=== PATIENT | male | born 1960 | race Caucasian/White ===

== ENCOUNTER 2017-04-19 14:33 | Emergency (ER) | payer OTHER ==
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
[2017-04-19 15:51] VITALS: BP 133/87
--- NOTE | 2017-04-20 08:02 | CR ---
Chest: Portable view of the chest was obtained. Comparison: No previous study. Poor inspiratory effort is seen causing increased lung markings. Atelectasis believed to be present within the right lung base. Lungs otherwise are clear. Tortuous thoracic aorta is seen. Heart does not appear enlarged. Mild scoliosis is noted within the spine. Inferior degenerative spurring is noted within both acromioclavicular joints. Impression: 1. Poor inspiratory effort causing increased lung markings. 2. Mild right basilar atelectasis believed to be present. 3. Other incidental findings. Diagnostic code #2
== END 2017-04-19 15:55 | disposition home or self-care (01) ==
LOC: JD.ED 14:33
DX: J70.5 Respiratory conditions due to smoke inhalation (principal)
CPT/HCPCS: 71010; 71010-26; 99282; 99284

== ENCOUNTER 2017-05-13 18:18 | Emergency (ER) | payer OTHER ==
[2017-05-13 18:27] VITALS: BP 133/102
[2017-05-13] MEDS ORDERED: cefTRIAXone 1 GM, Lidocaine 1% 2.1 ML IM SCH ×2 (20:30)
--- NOTE | 2017-05-13 20:36 | EDM.PDOC ---
ED HPI GENERAL MEDICAL PROBLEM - General Chief Complaint: General Stated Complaint: POSS HERNIA GROIN AREA Time Seen by Provider: 05/13/17 19:09 Source of Information: Reports: Patient History Limitations: Reports: No Limitations - History of Present Illness INITIAL COMMENTS - FREE TEXT/NARRATIVE: This is a 56-year-old male he noted yesterday evening some soreness in the right groin and then a lump developed and he believes he has a hernia. He denies lifting anything particularly heavy yesterday or the day before. He denies any fever or chills he denies any scrotal or penis pain. But he is concerned about the bump because it doesn't go away when he lies down and it seems to be more prominent when he is standing or sitting. It is also somewhat tender. Right Groin Pain Score (Numeric/FACES): 3 - Related Data Allergies Allergy/AdvReac Type Severity Reaction Status Date / Time No Known Allergies Allergy Verified 05/13/17 18:23 Home Meds: Home Meds Cephalexin [Keflex] 500 mg PO Q8H #30 cap 05/13/17 [Rx] Past Medical History HEENT History: Reports: Hard of Hearing Other HEENT History: hearing loss bilat ears Musculoskeletal History: Reports: Gout Neurological History: Reports: None - Past Surgical History HEENT Surgical History: Reports: Naso-Sinus Surgery, Tonsillectomy Neurological Surgical History: Reports: Lumbar Spine Musculoskeletal Surgical History: Reports: Other (See Below) Other Musculoskeletal Surgeries/Procedures:: back surgery Social & Family History - Family History Family Medical History: Noncontributory - Tobacco Use Smoking Status *Q: Never Smoker Second Hand Smoke Exposure: No - Caffeine Use Caffeine Use: Reports: Soda - Recreational Drug Use Recreational Drug Use: No ED ROS GENERAL - Review of Systems Review Of Systems: See Below Constitutional: Denies: Fever, Chills HEENT: Reports: No Symptoms Respiratory: Reports: No Symptoms Cardiovascular: Reports: No Symptoms Endocrine: Reports: No Symptoms GI/Abdominal: Reports: No Symptoms : Reports: Other (As per history of present illness) Musculoskeletal: Reports: No Symptoms Skin: Reports: Other (As per history of present illness) Neurological: Reports: No Symptoms Psychiatric: Reports: No Symptoms Hematologic/Lymphatic: Reports: No Symptoms ED EXAM, GENERAL - Physical Exam Exam: See Below Exam Limited By: No Limitations General Appearance: Alert, WD/WN, No Apparent Distress Eye Exam: Bilateral Eye: Normal Inspection Ears: Normal External Exam Nose: Normal Inspection Throat/Mouth: Normal Inspection, Normal Lips, Normal Voice Head: Normocephalic Neck: Supple Respiratory/Chest: No Respiratory Distress, Lungs Clear Cardiovascular: Regular Rate, Rhythm, No Murmur GI/Abdominal: Soft, Non-Tender Rectal (Males) Exam: Other (In the right groin she has an area that appears to be cellulitis about the size of a hand recent large lymphadenopathy in that right groin crease, ring down and coughing while feeling the inguinal canal there is no hernia standing and coughing when feeling the inguinal canal is no hernia, the scrotum is not inflamed or hard of this infection nor is the penis or the perineum) Back Exam: Full Range of Motion Extremities: Normal Inspection, Normal Range of Motion Neurological: Alert, Oriented Psychiatric: Normal Affect, Normal Mood Skin Exam: Warm, Dry, Erythema, Increased Warmth, Lymphangitis, Other (All this is related to the right groin area) Course - Vital Signs Last Recorded V/S: Last Vital Signs Temp 98.3 F 05/13/17 18:23 Pulse 88 05/13/17 18:23 Resp 18 05/13/17 18:23 BP 133/102 H 05/13/17 18:23 Pulse Ox 95 05/13/17 18:23 - Orders/Labs/Meds Orders: Active Orders 24 hr Category Date Time Status cefTRIAXone 1 GM with Lidocaine 1% 2.1 ML IM Med 05/13/17 20:30 Ordered cefTRIAXone [Rocephin] 1 gm Lidocaine 1% [Xylocaine 1%] 2.1 ml IM Q24H Labs: Laboratory Tests 05/13/17 Range/Units 19:49 WBC 8.38 (4.23-9.07) K/mm3 RBC 4.95 (4.63-6.08) M/mm3 Hgb 15.1 (13.7-17.5) gm/L Hct 43.8 (40.1-51.0) % MCV 88.5 (79.0-92.2) fl MCH 30.5 (25.7-32.2) pg MCHC 34.5 (32.2-35.5) g/dl RDW Std Deviation 43.0 (35.1-43.9) fL Plt Count 248 (163-337) K/mm3 MPV 8.5 L (9.4-12.3) fl Neut % (Auto) 57.6 (34.0-67.9) % Lymph % (Auto) 28.2 (21.8-53.1) % Forrest % (Auto) 11.5 (5.3-12.2) % Eos % (Auto) 2.3 (0.8-7.0) Baso % (Auto) 0.2 (0.1-1.2) % Neut # (Auto) 4.83 (1.78-5.38) K/mm3 Lymph # (Auto) 2.36 (1.32-3.57) K/mm3 Forrest # (Auto) 0.96 H (0.30-0.82) K/mm3 Eos # (Auto) 0.19 (0.04-0.54) K/mm3 Baso # (Auto) 0.02 (0.01-0.08) K/mm3 - Re-Assessments/Exams Free Text/Narrative Re-Assessment/Exam: 05/13/17 20:33 The patient has a normal white count, we'll provide some Rocephin IM and place him on some Keflex at home. I gave him strict instructions that if he develops a fever or chills or he noticed the redness is creeping into his scrotum or into the perineum he needs to be seen immediately. Departure - Departure Time of Disposition: 20:34 Disposition: Home, Self-Care 01 Condition: Good Clinical Impression: Cellulitis of groin, right, Acute lymphadenitis - Discharge Information Prescriptions: Cephalexin [Keflex] 500 mg PO Q8H #30 cap Referrals: Erica Boyle DO [Primary Care Provider] - Forms: ED Department Discharge, ED Return to Work/School Form Additional Instructions: Gentle activity at home over the next several days, take the antibiotics faithfully until they are finished, if you develop a fever or chills were a few noticed the redness is creeping into your scrotum or in the perineum area you must return to the ER immediately for reevaluation, call your doctor on Tuesday for follow-up evaluation next week, take Tylenol or ibuprofen as needed for the soreness, return to the ER if needed - My Orders Last 24 Hours: My Active Orders 05/13/17 20:30 cefTRIAXone 1 GM with Lidocaine 1% 2.1 ML IM cefTRIAXone [Rocephin] 1 gm Lidocaine 1% [Xylocaine 1%] 2.1 ml IM Q24H - Assessment/Plan Last 24 Hours: My Active Orders 05/13/17 20:30 cefTRIAXone 1 GM with Lidocaine 1% 2.1 ML IM cefTRIAXone [Rocephin] 1 gm Lidocaine 1% [Xylocaine 1%] 2.1 ml IM Q24H
== END 2017-05-13 20:57 | disposition home or self-care (01) ==
LOC: JD.ED 18:18
DX: L03.314 Cellulitis of groin (principal); L04.1 Acute lymphadenitis of trunk; Z98.890 Other specified postprocedural states
CPT/HCPCS: 36415; 85025; 96372; 99283; J0696

== ENCOUNTER 2020-12-09 09:32 | Inpatient (IN) | payer OTHER ==
[2020-12-09] MEDS ORDERED: Ondansetron 4 MG/2 ML SDV IVPUSH ONE (09:51)
[2020-12-09] MEDS ORDERED: Sodium Chloride 0.9% 1,000 ML IV STA (09:51)
[2020-12-09] MEDS ORDERED: Sodium Chloride 0.9% 10 ML Syringe FLUSH PRN ×2 (09:51→11:27)
[2020-12-09] MEDS ORDERED: Famotidine 20 MG/2 ML SDV IVPUSH ONE (10:10)
--- NOTE | 2020-12-09 10:49 | EDM.PDOC ---
ED HPI GENERAL MEDICAL PROBLEM - General Chief Complaint: Gastrointestinal Problem Stated Complaint: VOMITING X2/DIAHERRA Time Seen by Provider: 12/09/20 09:42 Source of Information: Reports: Patient, Family, RN Notes Reviewed History Limitations: Reports: No Limitations - History of Present Illness INITIAL COMMENTS - FREE TEXT/NARRATIVE: Patient is a 60-year-old male presenting to the emergency department with complaints of nausea, vomiting, diarrhea, and epigastric discomfort that began Tuesday evening. He has been unable to keep down fluids since the onset of symptoms. States he has approximately 4-5 episodes of watery diarrhea daily as well. He reports a temperature last evening of 101.8, however is afebrile on triage. He has a history of high blood pressure but denies any gastrointestinal pathology or previous surgeries. States he has some mild epigastric discomfort but denies any significant abdominal pain. Has had no known sick contacts. - Related Data Allergies Allergy/AdvReac Type Severity Reaction Status Date / Time No Known Allergies Allergy Verified 12/09/20 09:43 Home Meds: Home Meds amLODIPine [Norvasc] 5 mg PO DAILY 12/09/20 [History] Past Medical History HEENT History: Reports: Hard of Hearing Other HEENT History: hearing loss bilat ears Cardiovascular History: Reports: Hypertension Musculoskeletal History: Reports: Gout Neurological History: Reports: None Endocrine/Metabolic History: Reports: Obesity/BMI 30+ - Infectious Disease History Infectious Disease History: Reports: C-Difficile, Influenza, Measles - Past Surgical History HEENT Surgical History: Reports: Naso-Sinus Surgery, Tonsillectomy Other HEENT Surgeries/Procedures: Multiple ear surgeries Neurological Surgical History: Reports: Lumbar Spine Other Neurological Surgeries/Procedures: back surgery "about 10 years ago" Musculoskeletal Surgical History: Reports: Other (See Below) Other Musculoskeletal Surgeries/Procedures:: back surgery Social & Family History - Family History Family Medical History: No Pertinent Family History - Tobacco Use Tobacco Use Status *Q: Never Tobacco User Second Hand Smoke Exposure: Yes - Caffeine Use Caffeine Use: Reports: Soda - Recreational Drug Use Recreational Drug Use: No ED ROS GENERAL - Review of Systems Review Of Systems: See Below Constitutional: Reports: Fever, Fatigue, Decreased Appetite HEENT: Reports: No Symptoms Respiratory: Reports: No Symptoms. Denies: Shortness of Breath, Cough Cardiovascular: Reports: No Symptoms. Denies: Chest Pain, Lightheadedness, Syncope Endocrine: Reports: No Symptoms GI/Abdominal: Reports: Abdominal Pain (Epigastric discomfort), Diarrhea, Nausea, Vomiting : Reports: No Symptoms Musculoskeletal: Reports: No Symptoms Skin: Reports: No Symptoms Neurological: Reports: No Symptoms Psychiatric: Reports: No Symptoms Hematologic/Lymphatic: Reports: No Symptoms Immunologic: Reports: No Symptoms ED EXAM, GI/ABD - Physical Exam Exam: See Below Exam Limited By: No Limitations General Appearance: Alert, WD/WN, No Apparent Distress Respiratory/Chest: No Respiratory Distress, Lungs Clear, Normal Breath Sounds, No Accessory Muscle Use, Chest Non-Tender Cardiovascular: Normal Peripheral Pulses, Regular Rate, Rhythm, No Edema, No Gallop, No JVD, No Murmur, No Rub GI/Abdominal Exam: Normal Bowel Sounds, Soft, No Organomegaly, No Distention, No Abnormal Bruit, No Mass, Pelvis Stable, Tender (Mild epigastric tenderness. ). No: Guarding, Rigid, Rebound Neurological: Alert, Oriented, CN II-XII Intact, Normal Cognition, Normal Gait, Normal Reflexes, No Motor/Sensory Deficits Psychiatric: Normal Affect, Normal Mood Skin Exam: Warm, Dry, Intact, Normal Color, No Rash Course - Vital Signs Last Recorded V/S: Last Vital Signs Temp 97.9 F 12/12/20 07:52 Pulse 63 12/12/20 07:52 Resp 18 12/12/20 07:52 BP 133/84 12/12/20 08:04 Pulse Ox 98 12/12/20 07:52 - Orders/Labs/Meds Labs: Laboratory Tests 12/09/20 12/09/20 12/09/20 Range/Units 09:57 09:57 09:57 WBC 5.42 (4.23-9.07) K/mm3 RBC 5.99 (4.63-6.08) M/mm3 Hgb 17.8 H D (13.7-17.5) gm/dl Hct 52.4 H (40.1-51.0) % MCV 87.5 (79.0-92.2) fl MCH 29.7 (25.7-32.2) pg MCHC 34.0 (32.2-35.5) g/dl RDW Std Deviation 44.7 H (35.1-43.9) fL Plt Count 237 (163-337) K/mm3 MPV 8.4 L (9.4-12.3) fl Neut % (Auto) 79.5 H (34.0-67.9) % Lymph % (Auto) 7.6 L (21.8-53.1) % [place] % (Auto) 12.7 H (5.3-12.2) % Eos % (Auto) 0 L (0.8-7.0) Baso % (Auto) 0.0 L (0.1-1.2) % Neut # (Auto) 4.31 (1.78-5.38) K/mm3 Lymph # (Auto) 0.41 L (1.32-3.57) K/mm3 [place] # (Auto) 0.69 (0.30-0.82) K/mm3 Eos # (Auto) 0.00 L (0.04-0.54) K/mm3 Baso # (Auto) 0.00 L (0.01-0.08) K/mm3 Manual Slide Review Abnormal smear Sodium 137 (136-145) mEq/L Potassium 3.4 L (3.5-5.1) mEq/L Chloride 100 (98-107) mEq/L Carbon Dioxide 21 (21-32) mEq/L Anion Gap 19.4 H (5-15) BUN 33 H (7-18) mg/dL Creatinine 1.7 H (0.7-1.3) mg/dL Est Cr Clr Drug Dosing 45.82 mL/min Estimated GFR (MDRD) 42 (>60) mL/min BUN/Creatinine Ratio 19.4 H (14-18) Glucose 161 H (74-106) mg/dL Lactic Acid (0.4-2.0) mmol/L Calcium 9.4 (8.5-10.1) mg/dL Magnesium 1.9 (1.8-2.4) mg/dl Total Bilirubin 1.3 H (0.2-1.0) mg/dL GGT (15-85) U/L AST 341 H (15-37) U/L ALT 334 H (16-63) U/L Alkaline Phosphatase 76 (46-116) U/L C-Reactive Protein 20.0 H* (<1.0) mg/dL Total Protein 9.3 H (6.4-8.2) g/dl Albumin 4.2 (3.4-5.0) g/dl Globulin 5.1 gm/dL Albumin/Globulin Ratio 0.8 L (1-2) Lipase 56 L (73-393) U/L Urine Color (Yellow) Urine Appearance (Clear) Urine pH (5.0-8.0) Ur Specific [place] (1.005-1.030) Urine Protein (Negative) Urine Glucose (UA) (Negative) Urine Ketones (Negative) Urine Occult Blood (Negative) Urine Nitrite (Negative) Urine Bilirubin (Negative) Urine Urobilinogen (0.2-1.0) Ur Leukocyte Esterase (Negative) Urine RBC (0-5) /hpf Urine WBC (0-5) /hpf Ur Epithelial Cells (0-5) /hpf Urine Bacteria (FEW) /hpf Urine Mucus (FEW) /hpf SARS-CoV-2 RNA (MARIUSZ) (NEGATIVE) 12/09/20 12/09/20 12/09/20 Range/Units 09:57 11:50 12:07 WBC (4.23-9.07) K/mm3 RBC (4.63-6.08) M/mm3 Hgb (13.7-17.5) gm/dl Hct (40.1-51.0) % MCV (79.0-92.2) fl MCH (25.7-32.2) pg MCHC (32.2-35.5) g/dl RDW Std Deviation (35.1-43.9) fL Plt Count (163-337) K/mm3 MPV (9.4-12.3) fl Neut % (Auto) (34.0-67.9) % Lymph % (Auto) (21.8-53.1) % [place] % (Auto) (5.3-12.2) % Eos % (Auto) (0.8-7.0) Baso % (Auto) (0.1-1.2) % Neut # (Auto) (1.78-5.38) K/mm3 Lymph # (Auto) (1.32-3.57) K/mm3 [place] # (Auto) (0.30-0.82) K/mm3 Eos # (Auto) (0.04-0.54) K/mm3 Baso # (Auto) (0.01-0.08) K/mm3 Manual Slide Review Sodium (136-145) mEq/L Potassium (3.5-5.1) mEq/L Chloride (98-107) mEq/L Carbon Dioxide (21-32) mEq/L Anion Gap (5-15) BUN (7-18) mg/dL Creatinine (0.7-1.3) mg/dL Est Cr Clr Drug Dosing mL/min Estimated GFR (MDRD) (>60) mL/min BUN/Creatinine Ratio (14-18) Glucose (74-106) mg/dL Lactic Acid (0.4-2.0) mmol/L Calcium (8.5-10.1) mg/dL Magnesium (1.8-2.4) mg/dl Total Bilirubin (0.2-1.0) mg/dL GGT 59 (15-85) U/L AST (15-37) U/L ALT (16-63) U/L Alkaline Phosphatase (46-116) U/L C-Reactive Protein (<1.0) mg/dL Total Protein (6.4-8.2) g/dl Albumin (3.4-5.0) g/dl Globulin gm/dL Albumin/Globulin Ratio (1-2) Lipase (73-393) U/L Urine Color Dark yellow (Yellow) Urine Appearance Clear (Clear) Urine pH 5.5 (5.0-8.0) Ur Specific [place] > or = 1.030 (1.005-1.030) Urine Protein 2+ H (Negative) Urine Glucose (UA) Negative (Negative) Urine Ketones Negative (Negative) Urine Occult Blood 1+ H (Negative) Urine Nitrite Negative (Negative) Urine Bilirubin Negative (Negative) Urine Urobilinogen 0.2 (0.2-1.0) Ur Leukocyte Esterase Negative (Negative) Urine RBC 0-5 (0-5) /hpf Urine WBC 0-5 (0-5) /hpf Ur Epithelial Cells 5-10 H (0-5) /hpf Urine Bacteria Few (FEW) /hpf Urine Mucus Few (FEW) /hpf SARS-CoV-2 RNA (MARIUSZ) Negative (NEGATIVE) 12/09/20 Range/Units 12:50 WBC (4.23-9.07) K/mm3 RBC (4.63-6.08) M/mm3 Hgb (13.7-17.5) gm/dl Hct (40.1-51.0) % MCV (79.0-92.2) fl MCH (25.7-32.2) pg MCHC (32.2-35.5) g/dl RDW Std Deviation (35.1-43.9) fL Plt Count (163-337) K/mm3 MPV (9.4-12.3) fl Neut % (Auto) (34.0-67.9) % Lymph % (Auto) (21.8-53.1) % [place] % (Auto) (5.3-12.2) % Eos % (Auto) (0.8-7.0) Baso % (Auto) (0.1-1.2) % Neut # (Auto) (1.78-5.38) K/mm3 Lymph # (Auto) (1.32-3.57) K/mm3 [place] # (Auto) (0.30-0.82) K/mm3 Eos # (Auto) (0.04-0.54) K/mm3 Baso # (Auto) (0.01-0.08) K/mm3 Manual Slide Review Sodium (136-145) mEq/L Potassium (3.5-5.1) mEq/L Chloride (98-107) mEq/L Carbon Dioxide (21-32) mEq/L Anion Gap (5-15) BUN (7-18) mg/dL Creatinine (0.7-1.3) mg/dL Est Cr Clr Drug Dosing mL/min Estimated GFR (MDRD) (>60) mL/min BUN/Creatinine Ratio (14-18) Glucose (74-106) mg/dL Lactic Acid 2.1 H* (0.4-2.0) mmol/L Calcium (8.5-10.1) mg/dL Magnesium (1.8-2.4) mg/dl Total Bilirubin (0.2-1.0) mg/dL GGT (15-85) U/L AST (15-37) U/L ALT (16-63) U/L Alkaline Phosphatase (46-116) U/L C-Reactive Protein (<1.0) mg/dL Total Protein (6.4-8.2) g/dl Albumin (3.4-5.0) g/dl Globulin gm/dL Albumin/Globulin Ratio (1-2) Lipase (73-393) U/L Urine Color (Yellow) Urine Appearance (Clear) Urine pH (5.0-8.0) Ur Specific [place] (1.005-1.030) Urine Protein (Negative) Urine Glucose (UA) (Negative) Urine Ketones (Negative) Urine Occult Blood (Negative) Urine Nitrite (Negative) Urine Bilirubin (Negative) Urine Urobilinogen (0.2-1.0) Ur Leukocyte Esterase (Negative) Urine RBC (0-5) /hpf Urine WBC (0-5) /hpf Ur Epithelial Cells (0-5) /hpf Urine Bacteria (FEW) /hpf Urine Mucus (FEW) /hpf SARS-CoV-2 RNA (MARIUSZ) (NEGATIVE) Meds: Medications Discontinued Medications Generic Name Dose Route Start Last Admin Trade Name Freq PRN Reason Stop Dose Admin Acetaminophen 650 mg 12/09/20 17:09 Acetaminophen 325 Mg Tab PO Q4H PRN Pain (Mild 1-3)/fever Amlodipine Besylate 5 mg 12/11/20 09:00 12/12/20 08:04 Amlodipine 5 Mg Tab PO 5 mg DAILY BERKLEY Administration Diatrizoate Meglum/Diatrizoate Sod 120 ml 12/10/20 08:30 12/10/20 09:21 Diatrizoate Meglumine/Diatrizoate Sodium 37% 120 Ml Bottle PO 12/10/20 08:31 120 ml ONETIME ONE Administration Enoxaparin Sodium 40 mg 12/10/20 09:00 12/12/20 08:04 Enoxaparin 40 Mg/0.4 Ml Syringe SUBCUT Not Given DAILY BERKLEY Famotidine 20 mg 12/09/20 10:10 12/09/20 10:15 Famotidine 20 Mg/2 Ml Sdv IVPUSH 12/09/20 10:11 20 mg ONETIME ONE Administration Hydralazine HCl 10 mg 12/09/20 17:17 Hydralazine 20 Mg/Ml Sdv IVPUSH Q6H PRN Hypertension Sodium Chloride 1,000 mls @ 999 mls/hr 12/09/20 09:51 12/09/20 10:04 Normal Saline IV 12/09/20 10:51 999 mls/hr NOW STA Administration Sodium Chloride 1,000 mls @ 999 mls/hr 12/09/20 11:37 12/09/20 12:11 Normal Saline IV 12/09/20 12:37 999 mls/hr ONETIME ONE Administration Lactated Ringer's 1,000 mls @ 999 mls/hr 12/09/20 17:30 12/09/20 17:32 Ringers, Lactated IV 12/09/20 18:30 999 mls/hr ONETIME ONE Administration Lactated Ringer's 1,000 mls @ 150 mls/hr 12/09/20 18:30 12/10/20 05:06 Ringers, Lactated IV 12/10/20 13:00 150 mls/hr ASDIRECTED BERKLEY Administration Lactated Ringer's 1,000 mls @ 125 mls/hr 12/10/20 10:00 12/10/20 14:17 Ringers, Lactated IV 125 mls/hr ASDIRECTED BERKLEY Administration Potassium Chloride 10 meq/ 100 mls @ 100 mls/hr 12/10/20 18:30 12/10/20 19:53 Premix IV 12/10/20 20:29 100 mls/hr Q1H BERKLEY Administration Lactated Ringer's 1,000 mls @ 75 mls/hr 12/10/20 19:00 12/11/20 04:26 Ringers, Lactated IV 75 mls/hr ASDIRECTED BERKLEY Administration Iopamidol 100 ml 12/09/20 11:27 12/09/20 11:57 Iopamidol 612 Mg/Ml 100 Ml Bottle IVPUSH 12/09/20 11:28 100 ml ONETIME ONE Administration Iopamidol 25 ml 12/09/20 11:27 12/09/20 11:57 Iopamidol 612 Mg/Ml 50 Ml Sdv IVPUSH 12/09/20 11:28 25 ml ONETIME ONE Administration Ondansetron HCl 4 mg 12/09/20 09:51 12/09/20 10:04 Ondansetron 4 Mg/2 Ml Sdv IVPUSH 12/09/20 09:52 4 mg ONETIME ONE Administration Ondansetron HCl 4 mg 12/09/20 17:09 Ondansetron 4 Mg Tab.Dis PO Q4H PRN nausea, able to take PO Oxycodone HCl 5 mg 12/09/20 17:09 Oxycodone 5 Mg Tab PO Q4H PRN Pain (moderate 4-6) Potassium Bicarbonate 20 meq 12/12/20 08:30 12/12/20 08:58 Potassium Bicarbonate/Cit Ac 20 Meq Effervescent Tab PO 12/12/20 08:31 20 meq ONETIME ONE Administration Sodium Chloride 10 ml 12/09/20 09:51 12/09/20 10:11 Sodium Chloride 0.9% 10 Ml Syringe FLUSH 10 ml ASDIRECTED PRN Administration Keep Vein Open Sodium Chloride 10 ml 12/09/20 11:27 12/09/20 11:57 Sodium Chloride 0.9% 10 Ml Syringe FLUSH 10 ml ONETIME PRN Administration Keep Vein Open - Re-Assessments/Exams Free Text/Narrative Re-Assessment/Exam: Patient is a 60-year-old male presenting to the emergency department with complaints of nausea, vomiting, diarrhea, and epigastric discomfort that began on Tuesday evening. On exam, he has some mild epigastric tenderness but there is no tenderness in his right upper, right lower, or left lower quadrants. He reports 5-6 episodes of watery diarrhea as well as vomiting after any oral intake since Tuesday evening. Symptoms are suspicious for viral gastroenteritis, which unfortunately is moving heavily through the community at this time. I have ordered blood work including CBC, CMP, CRP, magnesium, lipase, and urinalysis. We will give him a 1 L bolus of normal saline, Zofran for nausea, and Pepcid. 12/09/20 1110 Hematology was significant for potassium slightly low at 3.4, anion gap 19.4, BUN 33, creatinine 1.7, total bili 1.3, AST 341, ALT 334, CRP 20.0. Patient denies any history of elevated liver enzymes. Given his elevation of liver enzymes as well as his CRP of 20, I have ordered a CT scan of the abdomen pelvis with IV contrast only as he will not be able to tolerate oral contrast. I have also ordered an additional 1 L of normal saline bolus. Patient's nausea has improved with the Zofran given. 12/09/20 12:37 CT scan of the abdomen pelvis impression as follows: 1. Diffusely dilated small bowel containing fluid. Transition point is seen within the distal ileum with no etiology and findings presumably are due to adhesions. Findings are compatible with fairly prominent small bowel obstruction. I have added on blood cultures and lactic acid. Covid test had previously been ordered by nursing staff. Case discussed with surgeon on-call, Dr. Evangelista. He requested NG tube insertion and will be over to see the patient. Patient updated on plan of care and he is in agreement. He continues to deny any previous abdominal surgeries that would explain the likely adhesions. Departure - Departure Time of Disposition: 12:37 Disposition: Admitted As Inpatient 68 Condition: Good Clinical Impression: Small bowel obstruction, Abdominal pain, Vomiting, Diarrhea - Discharge Information Sepsis Event Note (ED) - Evaluation Sepsis Screening Result: No Definite Risk
[2020-12-09] MEDS ORDERED: Iopamidol 612 MG/ML 100 ML Bottle IVPUSH ONE (11:27)
[2020-12-09] MEDS ORDERED: Iopamidol 612 MG/ML 50 ML SDV IVPUSH ONE (11:27)
[2020-12-09] MEDS ORDERED: Sodium Chloride 0.9% 1,000 ML IV ONE (11:37)
--- NOTE | 2020-12-09 12:17 | CT ---
CT abdomen and pelvis Technique: Multiple axial sections were obtained from slightly below the top of the liver inferiorly through the pubic symphysis. Intravenous contrast was utilized. Reconstructed coronal and sagittal images were obtained. Findings: Diffuse small bowel dilatation is seen which contains fluid. This dilatation resolves within the distal ileum without etiology. Findings may represent prior adhesion. Terminal ileum is normal into the cecum. Appendix is seen which is normal in size. Liver shows no focal abnormality. Spleen appears within normal limits. Adrenal glands show no nodules. Pancreas shows no discrete abnormality. Kidneys show symmetric contrast enhancement. Cyst is noted within the left kidney measuring approximately 2.3 cm. Minimal low-density lesion is noted within the right kidney measuring 4 mm which likely is due to additional cyst. Abdominal aorta shows no aneurysm. No retroperitoneal adenopathy or mesenteric abnormalities are seen. No pelvic mass or adenopathy is noted. No free fluid or inflammatory change is seen. Colon shows no dilatation. Bone window settings were reviewed which show mild degenerative change within the lower lumbar spine. No acute osseous finding is appreciated. Impression: 1. Diffusely dilated small bowel containing fluid. Transition point is seen within the distal ileum with no etiology and findings presumably are due to adhesions. Findings are compatible with fairly prominent small bowel obstruction. 2. Other findings believed to be incidental as noted above. Diagnostic code #3
--- NOTE | 2020-12-09 13:51 | CR ---
Chest: Frontal view of the chest was obtained. Nasogastric tube courses through the mediastinum into the stomach. Lungs show no acute parenchymal change. Heart size and mediastinum are within normal limits for the patient's age. No acute osseous finding is seen. Impression: 1. Nasogastric tube courses through the mediastinum into the stomach. 2. Nothing acute is otherwise seen on portable chest x-ray. Diagnostic code #2
--- NOTE | 2020-12-09 13:52 | CR ---
Abdomen: Portable view of the chest is obtained. Comparison: CT abdomen and pelvis study performed earlier on the same day (11:55 AM). Nasogastric tube is seen with tip lying within the body of the stomach or antrum. Dilated small bowel loops are noted. Mild degenerative change is scattered within the spine. Impression: 1. Nasogastric tube with tip lying within the body of the stomach or antrum. 2. Dilated small bowel loops. Diagnostic code #3
[2020-12-09] MEDS ORDERED: Acetaminophen 325 MG Tab PO PRN (17:09)
[2020-12-09] MEDS ORDERED: Ondansetron 4 MG Tab.DIS PO PRN (17:09)
[2020-12-09] MEDS ORDERED: oxyCODONE 5 MG Tab PO PRN (17:09)
[2020-12-09] MEDS ORDERED: Lactated Ringers 1,000 ML IV ONE ×2 (17:09→17:30)
[2020-12-09] MEDS ORDERED: Lactated Ringers 1,000 ML IV SCH (17:15)
[2020-12-09] MEDS ORDERED: hydrALAZINE 20 MG/ML SDV IVPUSH PRN (17:17)
--- NOTE | 2020-12-09 17:30 | PCM.HP.2 ---
H&P History of Present Illness - General Date of Service: 12/09/20 Admit Problem/Dx: Admission Diagnosis/Problem Admission Diagnosis/Problem Small bowel obstruction Source of Information: Patient History Limitations: Reports: No Limitations - History of Present Illness Initial Comments - Free Text/Narative: Patient reports that he was doing fine until Thursday 12/07 after getting dinner at [employer]. That night he started with diarrhea then nausea and vomiting followed. Diarrhea was watery brown stools. He vomited the food he had eaten. Since that time he has been having diarrhea, nausea and vomiting. He is unable to keep things down. He had tried to drink soda, juice, Getorade and water but they come up after some time. Diarrhea has improved but he had not much to eat since Tuesday. He initially thought this is due to food poisoning but due to persistence, he presented to the ED. In my evaluation, the patient denies any abdominal pain, no fevers or chills. No personal or family history of OBS. No prior abdominal operations. No prior colonoscopy. No bloody emesis or bloody stools. He has HTN but no other cardiopulmonary issues. Onset of Symptoms: Reports: Gradual Duration of Symptoms: Reports: Getting Worse Location: Reports: Abdomen Severity: Mild Improves with: Reports: None Worsens with: Reports: None Associated Symptoms: Reports: Nausea/Vomiting - Related Data Allergies/Adverse Reactions: Allergies Allergy/AdvReac Type Severity Reaction Status Date / Time No Known Allergies Allergy Verified 12/09/20 09:43 Home Medications: Home Meds amLODIPine [Norvasc] 5 mg PO DAILY 12/09/20 [History] Past Medical History HEENT History: Reports: Hard of Hearing Other HEENT History: hearing loss bilat ears Cardiovascular History: Reports: Hypertension Musculoskeletal History: Reports: Gout Neurological History: Reports: None Endocrine/Metabolic History: Reports: Obesity/BMI 30+ - Infectious Disease History Infectious Disease History: Reports: C-Difficile, Influenza, Measles - Past Surgical History HEENT Surgical History: Reports: Naso-Sinus Surgery, Tonsillectomy Other HEENT Surgeries/Procedures: Multiple ear surgeries Neurological Surgical History: Reports: Lumbar Spine Other Neurological Surgeries/Procedures: back surgery "about 10 years ago" Musculoskeletal Surgical History: Reports: Other (See Below) Other Musculoskeletal Surgeries/Procedures:: back surgery Social & Family History - Family History Family Medical History: No Pertinent Family History - Tobacco Use Tobacco Use Status *Q: Never Tobacco User Second Hand Smoke Exposure: Yes - Caffeine Use Caffeine Use: Reports: Soda Caffeine Use Comment: Patient reports he drinks coke every once in a while - Recreational Drug Use Recreational Drug Use: No H&P Review of Systems - Review of Systems: Review Of Systems: See Below General: Reports: No Symptoms HEENT: Reports: No Symptoms Pulmonary: Reports: No Symptoms Cardiovascular: Reports: No Symptoms Gastrointestinal: Reports: No Symptoms, Vomiting Musculoskeletal: Reports: No Symptoms Skin: Reports: No Symptoms Psychiatric: Reports: No Symptoms Exam - Exam Exam: See Below - Vital Signs Vital Signs: Last Vital Signs Temp 97.5 F 12/09/20 15:18 Pulse 103 H 12/09/20 15:53 Resp 20 12/09/20 13:46 BP 151/80 H 12/09/20 15:18 Pulse Ox 87 L 12/09/20 15:53 Weight: 105.596 kg - Exam General: Alert, Oriented, Cooperative Lungs: Clear to Auscultation, Normal Respiratory Effort Cardiovascular: Regular Rate, Regular Rhythm, Normal S1, Normal S2 GI/Abdominal Exam: Soft, Non-Tender, No Organomegaly, No Distention - Patient Data Lab Results Last 24 hrs: Laboratory Results - last 24 hr 12/09/20 12/09/20 12/09/20 Range/Units 09:57 09:57 09:57 WBC 5.42 (4.23-9.07) K/mm3 RBC 5.99 (4.63-6.08) M/mm3 Hgb 17.8 H D (13.7-17.5) gm/dl Hct 52.4 H (40.1-51.0) % MCV 87.5 (79.0-92.2) fl MCH 29.7 (25.7-32.2) pg MCHC 34.0 (32.2-35.5) g/dl RDW Std Deviation 44.7 H (35.1-43.9) fL Plt Count 237 (163-337) K/mm3 MPV 8.4 L (9.4-12.3) fl Neut % (Auto) 79.5 H (34.0-67.9) % Lymph % (Auto) 7.6 L (21.8-53.1) % [place] % (Auto) 12.7 H (5.3-12.2) % Eos % (Auto) 0 L (0.8-7.0) Baso % (Auto) 0.0 L (0.1-1.2) % Neut # (Auto) 4.31 (1.78-5.38) K/mm3 Lymph # (Auto) 0.41 L (1.32-3.57) K/mm3 [place] # (Auto) 0.69 (0.30-0.82) K/mm3 Eos # (Auto) 0.00 L (0.04-0.54) K/mm3 Baso # (Auto) 0.00 L (0.01-0.08) K/mm3 Manual Slide Review Abnormal smear Sodium 137 (136-145) mEq/L Potassium 3.4 L (3.5-5.1) mEq/L Chloride 100 (98-107) mEq/L Carbon Dioxide 21 (21-32) mEq/L Anion Gap 19.4 H (5-15) BUN 33 H (7-18) mg/dL Creatinine 1.7 H (0.7-1.3) mg/dL Est Cr Clr Drug Dosing 45.82 mL/min Estimated GFR (MDRD) 42 (>60) mL/min BUN/Creatinine Ratio 19.4 H (14-18) Glucose 161 H (74-106) mg/dL Lactic Acid (0.4-2.0) mmol/L Calcium 9.4 (8.5-10.1) mg/dL Magnesium 1.9 (1.8-2.4) mg/dl Total Bilirubin 1.3 H (0.2-1.0) mg/dL GGT (15-85) U/L AST 341 H (15-37) U/L ALT 334 H (16-63) U/L Alkaline Phosphatase 76 (46-116) U/L C-Reactive Protein 20.0 H* (<1.0) mg/dL Total Protein 9.3 H (6.4-8.2) g/dl Albumin 4.2 (3.4-5.0) g/dl Globulin 5.1 gm/dL Albumin/Globulin Ratio 0.8 L (1-2) Lipase 56 L (73-393) U/L Urine Color (Yellow) Urine Appearance (Clear) Urine pH (5.0-8.0) Ur Specific [place] (1.005-1.030) Urine Protein (Negative) Urine Glucose (UA) (Negative) Urine Ketones (Negative) Urine Occult Blood (Negative) Urine Nitrite (Negative) Urine Bilirubin (Negative) Urine Urobilinogen (0.2-1.0) Ur Leukocyte Esterase (Negative) Urine RBC (0-5) /hpf Urine WBC (0-5) /hpf Ur Epithelial Cells (0-5) /hpf Urine Bacteria (FEW) /hpf Urine Mucus (FEW) /hpf SARS-CoV-2 RNA (MARIUSZ) (NEGATIVE) 12/09/20 12/09/20 12/09/20 Range/Units 09:57 11:50 12:07 WBC (4.23-9.07) K/mm3 RBC (4.63-6.08) M/mm3 Hgb (13.7-17.5) gm/dl Hct (40.1-51.0) % MCV (79.0-92.2) fl MCH (25.7-32.2) pg MCHC (32.2-35.5) g/dl RDW Std Deviation (35.1-43.9) fL Plt Count (163-337) K/mm3 MPV (9.4-12.3) fl Neut % (Auto) (34.0-67.9) % Lymph % (Auto) (21.8-53.1) % [place] % (Auto) (5.3-12.2) % Eos % (Auto) (0.8-7.0) Baso % (Auto) (0.1-1.2) % Neut # (Auto) (1.78-5.38) K/mm3 Lymph # (Auto) (1.32-3.57) K/mm3 [place] # (Auto) (0.30-0.82) K/mm3 Eos # (Auto) (0.04-0.54) K/mm3 Baso # (Auto) (0.01-0.08) K/mm3 Manual Slide Review Sodium (136-145) mEq/L Potassium (3.5-5.1) mEq/L Chloride (98-107) mEq/L Carbon Dioxide (21-32) mEq/L Anion Gap (5-15) BUN (7-18) mg/dL Creatinine (0.7-1.3) mg/dL Est Cr Clr Drug Dosing mL/min Estimated GFR (MDRD) (>60) mL/min BUN/Creatinine Ratio (14-18) Glucose (74-106) mg/dL Lactic Acid (0.4-2.0) mmol/L Calcium (8.5-10.1) mg/dL Magnesium (1.8-2.4) mg/dl Total Bilirubin (0.2-1.0) mg/dL GGT 59 (15-85) U/L AST (15-37) U/L ALT (16-63) U/L Alkaline Phosphatase (46-116) U/L C-Reactive Protein (<1.0) mg/dL Total Protein (6.4-8.2) g/dl Albumin (3.4-5.0) g/dl Globulin gm/dL Albumin/Globulin Ratio (1-2) Lipase (73-393) U/L Urine Color Dark yellow (Yellow) Urine Appearance Clear (Clear) Urine pH 5.5 (5.0-8.0) Ur Specific [place] > or = 1.030 (1.005-1.030) Urine Protein 2+ H (Negative) Urine Glucose (UA) Negative (Negative) Urine Ketones Negative (Negative) Urine Occult Blood 1+ H (Negative) Urine Nitrite Negative (Negative) Urine Bilirubin Negative (Negative) Urine Urobilinogen 0.2 (0.2-1.0) Ur Leukocyte Esterase Negative (Negative) Urine RBC 0-5 (0-5) /hpf Urine WBC 0-5 (0-5) /hpf Ur Epithelial Cells 5-10 H (0-5) /hpf Urine Bacteria Few (FEW) /hpf Urine Mucus Few (FEW) /hpf SARS-CoV-2 RNA (MARIUSZ) Negative (NEGATIVE) 12/09/20 12/09/20 Range/Units 12:50 16:20 WBC (4.23-9.07) K/mm3 RBC (4.63-6.08) M/mm3 Hgb (13.7-17.5) gm/dl Hct (40.1-51.0) % MCV (79.0-92.2) fl MCH (25.7-32.2) pg MCHC (32.2-35.5) g/dl RDW Std Deviation (35.1-43.9) fL Plt Count (163-337) K/mm3 MPV (9.4-12.3) fl Neut % (Auto) (34.0-67.9) % Lymph % (Auto) (21.8-53.1) % [place] % (Auto) (5.3-12.2) % Eos % (Auto) (0.8-7.0) Baso % (Auto) (0.1-1.2) % Neut # (Auto) (1.78-5.38) K/mm3 Lymph # (Auto) (1.32-3.57) K/mm3 [place] # (Auto) (0.30-0.82) K/mm3 Eos # (Auto) (0.04-0.54) K/mm3 Baso # (Auto) (0.01-0.08) K/mm3 Manual Slide Review Sodium (136-145) mEq/L Potassium (3.5-5.1) mEq/L Chloride (98-107) mEq/L Carbon Dioxide (21-32) mEq/L Anion Gap (5-15) BUN (7-18) mg/dL Creatinine (0.7-1.3) mg/dL Est Cr Clr Drug Dosing mL/min Estimated GFR (MDRD) (>60) mL/min BUN/Creatinine Ratio (14-18) Glucose (74-106) mg/dL Lactic Acid 2.1 H* 2.2 H* (0.4-2.0) mmol/L Calcium (8.5-10.1) mg/dL Magnesium (1.8-2.4) mg/dl Total Bilirubin (0.2-1.0) mg/dL GGT (15-85) U/L AST (15-37) U/L ALT (16-63) U/L Alkaline Phosphatase (46-116) U/L C-Reactive Protein (<1.0) mg/dL Total Protein (6.4-8.2) g/dl Albumin (3.4-5.0) g/dl Globulin gm/dL Albumin/Globulin Ratio (1-2) Lipase (73-393) U/L Urine Color (Yellow) Urine Appearance (Clear) Urine pH (5.0-8.0) Ur Specific [place] (1.005-1.030) Urine Protein (Negative) Urine Glucose (UA) (Negative) Urine Ketones (Negative) Urine Occult Blood (Negative) Urine Nitrite (Negative) Urine Bilirubin (Negative) Urine Urobilinogen (0.2-1.0) Ur Leukocyte Esterase (Negative) Urine RBC (0-5) /hpf Urine WBC (0-5) /hpf Ur Epithelial Cells (0-5) /hpf Urine Bacteria (FEW) /hpf Urine Mucus (FEW) /hpf SARS-CoV-2 RNA (MARIUSZ) (NEGATIVE) Result Diagrams: 12/09/20 09:57 12/09/20 09:57 Sepsis Event Note - Evaluation Sepsis Screening Result: No Definite Risk - Focused Exam Vital Signs: Vital Signs Temp Temp Pulse Pulse Resp BP BP 12/09/20 15:53 103 H 12/09/20 15:52 106 H 12/09/20 15:18 97.5 F 102 H 151/80 H 12/09/20 13:46 98.1 F 95 20 153/96 H 12/09/20 13:20 90 14 160/97 H 12/09/20 12:45 84 14 150/95 H 12/09/20 12:00 88 14 148/92 H 12/09/20 11:15 86 14 151/98 H 12/09/20 10:30 91 12 153/97 H 12/09/20 09:45 94 14 148/98 H 12/09/20 09:40 97 F 88 14 148/98 H Pulse Ox 12/09/20 15:53 87 L 12/09/20 15:52 91 L 12/09/20 15:18 90 L 12/09/20 13:46 94 L 12/09/20 13:20 93 L 12/09/20 12:45 97 12/09/20 12:00 94 L 12/09/20 11:15 96 12/09/20 10:30 96 12/09/20 09:45 95 12/09/20 09:40 93 L Problem List Initiated/Reviewed/Updated: No Orders Last 24hrs: Active Orders 24 hr Category Date Time Status Patient Status [ADT] Routine ADT 12/09/20 13:14 Active Antiembolic Devices [RC] PER UNIT ROUTINE Care 12/09/20 17:14 Active Cardiac Monitoring [RC] CONTINUOUS Care 12/09/20 17:12 Active Gastrointestinal Tube Mgmt [RC] ASDIRECTED Care 12/09/20 12:29 Active Intake and Output [RC] Q2HWA Care 12/09/20 17:10 Active Notify Provider Vital Signs [RC] ASDIRECTED Care 12/09/20 17:13 Active Oxygen Therapy [RC] PRN Care 12/09/20 17:10 Active Peripheral IV Care [RC] Q2HR Care 12/09/20 09:51 Active Pulse Oximetry [RC] PRN Care 12/09/20 17:12 Active Up ad Bertha [RC] ASDIRECTED Care 12/09/20 17:09 Active VTE/DVT Education [RC] PER UNIT ROUTINE Care 12/09/20 17:10 Active Vital Signs [RC] Q4HR Care 12/09/20 17:10 Active Nothing per Oral Now Diet [DIET] Diet 12/09/20 Dinner Active CBC WITH AUTO DIFF [HEME] AM Lab 12/10/20 05:11 Ordered CBC WITH AUTO DIFF [HEME] AM Lab 12/11/20 05:11 Ordered CBC WITH AUTO DIFF [HEME] AM Lab 12/12/20 05:11 Ordered CBC WITH AUTO DIFF [HEME] AM Lab 12/13/20 05:11 Ordered CBC WITH AUTO DIFF [HEME] AM Lab 12/14/20 05:11 Ordered COMPREHENSIVE METABOLIC PN,CMP [CHEM] AM Lab 12/10/20 05:11 Ordered COMPREHENSIVE METABOLIC PN,CMP [CHEM] AM Lab 12/11/20 05:11 Ordered COMPREHENSIVE METABOLIC PN,CMP [CHEM] AM Lab 12/12/20 05:11 Ordered COMPREHENSIVE METABOLIC PN,CMP [CHEM] AM Lab 12/13/20 05:11 Ordered COMPREHENSIVE METABOLIC PN,CMP [CHEM] AM Lab 12/14/20 05:11 Ordered CULTURE BLOOD [BC] Stat Lab 12/09/20 12:50 Received CULTURE BLOOD [BC] Stat Lab 12/09/20 13:00 Received MAGNESIUM [CHEM] AM Lab 12/10/20 05:11 Ordered MAGNESIUM [CHEM] AM Lab 12/11/20 05:11 Ordered MAGNESIUM [CHEM] AM Lab 12/12/20 05:11 Ordered MAGNESIUM [CHEM] AM Lab 12/13/20 05:11 Ordered MAGNESIUM [CHEM] AM Lab 12/14/20 05:11 Ordered PHOSPHORUS [CHEM] AM Lab 12/10/20 05:11 Ordered PHOSPHORUS [CHEM] AM Lab 12/11/20 05:11 Ordered PHOSPHORUS [CHEM] AM Lab 12/12/20 05:11 Ordered PHOSPHORUS [CHEM] AM Lab 12/13/20 05:11 Ordered PHOSPHORUS [CHEM] AM Lab 12/14/20 05:11 Ordered STOOL CULTURE/SHIGA TOXIN [MREF] Routine Lab 12/09/20 15:30 Received Acetaminophen [TylenoL] Med 12/09/20 17:09 Active 650 mg PO Q4H PRN Enoxaparin [Lovenox] Med 12/10/20 09:00 Active 40 mg SUBCUT DAILY Lactated Ringers [Ringers, Lactated] 1,000 ml Med 12/09/20 18:30 Active IV ASDIRECTED Lactated Ringers [Ringers, Lactated] 1,000 ml Med 12/09/20 17:30 Active IV ONETIME Ondansetron [Zofran ODT] Med 12/09/20 17:09 Active 4 mg PO Q4H PRN Sodium Chloride 0.9% [Saline Flush] Med 12/09/20 09:51 Active 10 ml FLUSH ASDIRECTED PRN hydrALAZINE [Apresoline] Med 12/09/20 17:17 Ordered 10 mg IVPUSH Q6H PRN oxyCODONE Med 12/09/20 17:09 Ordered 5 mg PO Q4H PRN Antiembolic Hose [OM.PC] Per Unit Routine Oth 12/09/20 17:13 Ordered Blood Culture x2 Reflex Set [OM.PC] Stat Oth 12/09/20 12:22 Ordered NG [Nasogastric Orogastric Tube Insertion] [OM.PC] Oth 12/09/20 12:29 Ordered Routine Peripheral IV Insertion Adult [OM.PC] Stat Oth 12/09/20 09:50 Ordered Resuscitation Status Routine Resus Stat 12/09/20 15:45 Ordered Medication Orders Acetaminophen (Acetaminophen 325 Mg Tab) 650 mg PO Q4H PRN PRN Reason: Pain (Mild 1-3)/fever Enoxaparin Sodium (Enoxaparin 40 Mg/0.4 Ml Syringe) 40 mg SUBCUT DAILY [place] Hydralazine HCl (Hydralazine 20 Mg/Ml Sdv) 10 mg IVPUSH Q6H PRN PRN Reason: Hypertension Lactated Ringer's (Ringers, Lactated) 1,000 mls @ 999 mls/hr IV ONETIME ONE Stop: 03/30/21 18:30 Lactated Ringer's (Ringers, Lactated) 1,000 mls @ 150 mls/hr IV ASDIRECTED [facility] Ondansetron HCl (Ondansetron 4 Mg Tab.Dis) 4 mg PO Q4H PRN PRN Reason: nausea, able to take PO Oxycodone HCl (Oxycodone 5 Mg Tab) 5 mg PO Q4H PRN PRN Reason: Pain (moderate 4-6) Sodium Chloride (Sodium Chloride 0.9% 10 Ml Syringe) 10 ml FLUSH ASDIRECTED PRN PRN Reason: Keep Vein Open Last Admin: 12/09/20 10:11 Dose: 10 ml Documented by: CARLOS Assessment/Plan Comment:: I reviewed labs and CT scans. Based on exam, labs and imaging, I believe the patient has dehydration due to small bowel obstruction with a transition point in the distal ileum. Etiology is unclear at this point but low likelihood for infection given normal WBC, and lack of obvious inflammation around the obstructed portion of the bowel. Elevated HCt, LFts, Creat, lactate, AG may be related to severe dehydration at this point. Overall plan will be to decompress the patient with NGT and fluid resuscitation to see if he improves. Plan - NGT to LWS - NPO - Fluids: LR x 3L boluses total (30 mg/kg), then 150cc/hr to be titrated based on UOP - Will monitor I/O Q2hr for now - Tele - Vitals Q2H when awake - Daily labs - Contrast study in the AM once the pt has been resuscitated I discussed with the patient that if he does not open up in 24-48 hrs we will consider surgery. He does not want surgery but I made it clear to him that he is a high risk group for surgery due to unclear etiology of his obstruction. Pt understands but did verbalize that he does not want ostomy.
[2020-12-09] MEDS: Lactated Ringers 1,000 ML IV SCH (20:48)
[2020-12-10] MEDS: Lactated Ringers 1,000 ML IV SCH (05:06)
[2020-12-10] MEDS ORDERED: Diatrizoate Meglumine/Diatrizoate Sodium 37% 120 ML Bottle PO ONE (08:30)
--- NOTE | 2020-12-10 08:45 | PCM.PN ---
- General Info Date of Service: 12/10/20 Admission Dx/Problem (Free Text): Admission Diagnosis/Problem Admission Diagnosis/Problem Small bowel obstruction Subjective Update: Patient is feeling much better. abdominal discomfort is gone. has more energy. Is hungry. Endorses passing gas and having bowel movement. Functional Status: Reports: Pain Controlled, Ambulating, Urinating - Review of Systems General: Reports: No Symptoms HEENT: Reports: No Symptoms Pulmonary: Reports: No Symptoms Cardiovascular: Reports: No Symptoms Gastrointestinal: Reports: No Symptoms Genitourinary: Reports: No Symptoms Musculoskeletal: Reports: No Symptoms Skin: Reports: No Symptoms Neurological: Reports: No Symptoms - Patient Data Vitals - Most Recent: Last Vital Signs Temp 98.1 F 12/10/20 03:46 Pulse 77 12/10/20 03:46 Resp 18 12/10/20 03:46 BP 138/89 12/10/20 03:46 Pulse Ox 94 L 12/10/20 03:46 Weight - Most Recent: 102.965 kg I&O - Last 24 Hours: Intake & Output 12/09/20 12/10/20 12/10/20 22:59 06:59 14:59 Intake Total 1784 Output Total 750 1600 Balance -750 184 Lab Results Last 24 Hours: Laboratory Results - last 24 hr 12/09/20 12/09/20 12/09/20 Range/Units 09:57 09:57 09:57 WBC 5.42 (4.23-9.07) K/mm3 RBC 5.99 (4.63-6.08) M/mm3 Hgb 17.8 H D (13.7-17.5) gm/dl Hct 52.4 H (40.1-51.0) % MCV 87.5 (79.0-92.2) fl MCH 29.7 (25.7-32.2) pg MCHC 34.0 (32.2-35.5) g/dl RDW Std Deviation 44.7 H (35.1-43.9) fL Plt Count 237 (163-337) K/mm3 MPV 8.4 L (9.4-12.3) fl Neut % (Auto) 79.5 H (34.0-67.9) % Lymph % (Auto) 7.6 L (21.8-53.1) % [place] % (Auto) 12.7 H (5.3-12.2) % Eos % (Auto) 0 L (0.8-7.0) Baso % (Auto) 0.0 L (0.1-1.2) % Neut # (Auto) 4.31 (1.78-5.38) K/mm3 Lymph # (Auto) 0.41 L (1.32-3.57) K/mm3 [place] # (Auto) 0.69 (0.30-0.82) K/mm3 Eos # (Auto) 0.00 L (0.04-0.54) K/mm3 Baso # (Auto) 0.00 L (0.01-0.08) K/mm3 Manual Slide Review Abnormal smear Sodium 137 (136-145) mEq/L Potassium 3.4 L (3.5-5.1) mEq/L Chloride 100 (98-107) mEq/L Carbon Dioxide 21 (21-32) mEq/L Anion Gap 19.4 H (5-15) BUN 33 H (7-18) mg/dL Creatinine 1.7 H (0.7-1.3) mg/dL Est Cr Clr Drug Dosing 45.82 mL/min Estimated GFR (MDRD) 42 (>60) mL/min BUN/Creatinine Ratio 19.4 H (14-18) Glucose 161 H (74-106) mg/dL Lactic Acid (0.4-2.0) mmol/L Calcium 9.4 (8.5-10.1) mg/dL Phosphorus (2.6-4.7) mg/dL Magnesium 1.9 (1.8-2.4) mg/dl Total Bilirubin 1.3 H (0.2-1.0) mg/dL GGT (15-85) U/L AST 341 H (15-37) U/L ALT 334 H (16-63) U/L Alkaline Phosphatase 76 (46-116) U/L C-Reactive Protein 20.0 H* (<1.0) mg/dL Total Protein 9.3 H (6.4-8.2) g/dl Albumin 4.2 (3.4-5.0) g/dl Globulin 5.1 gm/dL Albumin/Globulin Ratio 0.8 L (1-2) Lipase 56 L (73-393) U/L Urine Color (Yellow) Urine Appearance (Clear) Urine pH (5.0-8.0) Ur Specific [place] (1.005-1.030) Urine Protein (Negative) Urine Glucose (UA) (Negative) Urine Ketones (Negative) Urine Occult Blood (Negative) Urine Nitrite (Negative) Urine Bilirubin (Negative) Urine Urobilinogen (0.2-1.0) Ur Leukocyte Esterase (Negative) Urine RBC (0-5) /hpf Urine WBC (0-5) /hpf Ur Epithelial Cells (0-5) /hpf Urine Bacteria (FEW) /hpf Urine Mucus (FEW) /hpf SARS-CoV-2 RNA (MARIUSZ) (NEGATIVE) 12/09/20 12/09/20 12/09/20 Range/Units 09:57 11:50 12:07 WBC (4.23-9.07) K/mm3 RBC (4.63-6.08) M/mm3 Hgb (13.7-17.5) gm/dl Hct (40.1-51.0) % MCV (79.0-92.2) fl MCH (25.7-32.2) pg MCHC (32.2-35.5) g/dl RDW Std Deviation (35.1-43.9) fL Plt Count (163-337) K/mm3 MPV (9.4-12.3) fl Neut % (Auto) (34.0-67.9) % Lymph % (Auto) (21.8-53.1) % [place] % (Auto) (5.3-12.2) % Eos % (Auto) (0.8-7.0) Baso % (Auto) (0.1-1.2) % Neut # (Auto) (1.78-5.38) K/mm3 Lymph # (Auto) (1.32-3.57) K/mm3 [place] # (Auto) (0.30-0.82) K/mm3 Eos # (Auto) (0.04-0.54) K/mm3 Baso # (Auto) (0.01-0.08) K/mm3 Manual Slide Review Sodium (136-145) mEq/L Potassium (3.5-5.1) mEq/L Chloride (98-107) mEq/L Carbon Dioxide (21-32) mEq/L Anion Gap (5-15) BUN (7-18) mg/dL Creatinine (0.7-1.3) mg/dL Est Cr Clr Drug Dosing mL/min Estimated GFR (MDRD) (>60) mL/min BUN/Creatinine Ratio (14-18) Glucose (74-106) mg/dL Lactic Acid (0.4-2.0) mmol/L Calcium (8.5-10.1) mg/dL Phosphorus (2.6-4.7) mg/dL Magnesium (1.8-2.4) mg/dl Total Bilirubin (0.2-1.0) mg/dL GGT 59 (15-85) U/L AST (15-37) U/L ALT (16-63) U/L Alkaline Phosphatase (46-116) U/L C-Reactive Protein (<1.0) mg/dL Total Protein (6.4-8.2) g/dl Albumin (3.4-5.0) g/dl Globulin gm/dL Albumin/Globulin Ratio (1-2) Lipase (73-393) U/L Urine Color Dark yellow (Yellow) Urine Appearance Clear (Clear) Urine pH 5.5 (5.0-8.0) Ur Specific [place]ber > or = 1.030 (1.005-1.030) Urine Protein 2+ H (Negative) Urine Glucose (UA) Negative (Negative) Urine Ketones Negative (Negative) Urine Occult Blood 1+ H (Negative) Urine Nitrite Negative (Negative) Urine Bilirubin Negative (Negative) Urine Urobilinogen 0.2 (0.2-1.0) Ur Leukocyte Esterase Negative (Negative) Urine RBC 0-5 (0-5) /hpf Urine WBC 0-5 (0-5) /hpf Ur Epithelial Cells 5-10 H (0-5) /hpf Urine Bacteria Few (FEW) /hpf Urine Mucus Few (FEW) /hpf SARS-CoV-2 RNA (MARIUSZ) Negative (NEGATIVE) 12/09/20 12/09/20 12/10/20 Range/Units 12:50 16:20 05:23 WBC 4.50 (4.23-9.07) K/mm3 RBC 5.27 (4.63-6.08) M/mm3 Hgb 15.7 D (13.7-17.5) gm/dl Hct 46.9 (40.1-51.0) % MCV 89.0 (79.0-92.2) fl MCH 29.8 (25.7-32.2) pg MCHC 33.5 (32.2-35.5) g/dl RDW Std Deviation 45.7 H (35.1-43.9) fL Plt Count 224 (163-337) K/mm3 MPV 8.8 L (9.4-12.3) fl Neut % (Auto) 56.5 (34.0-67.9) % Lymph % (Auto) 22.9 (21.8-53.1) % [place] % (Auto) 18.4 H (5.3-12.2) % Eos % (Auto) 1.8 (0.8-7.0) Baso % (Auto) 0.2 (0.1-1.2) % Neut # (Auto) 2.54 (1.78-5.38) K/mm3 Lymph # (Auto) 1.03 L (1.32-3.57) K/mm3 [place] # (Auto) 0.83 H (0.30-0.82) K/mm3 Eos # (Auto) 0.08 (0.04-0.54) K/mm3 Baso # (Auto) 0.01 (0.01-0.08) K/mm3 Manual Slide Review Abnormal smear Sodium (136-145) mEq/L Potassium (3.5-5.1) mEq/L Chloride (98-107) mEq/L Carbon Dioxide (21-32) mEq/L Anion Gap (5-15) BUN (7-18) mg/dL Creatinine (0.7-1.3) mg/dL Est Cr Clr Drug Dosing mL/min Estimated GFR (MDRD) (>60) mL/min BUN/Creatinine Ratio (14-18) Glucose (74-106) mg/dL Lactic Acid 2.1 H* 2.2 H* (0.4-2.0) mmol/L Calcium (8.5-10.1) mg/dL Phosphorus (2.6-4.7) mg/dL Magnesium (1.8-2.4) mg/dl Total Bilirubin (0.2-1.0) mg/dL GGT (15-85) U/L AST (15-37) U/L ALT (16-63) U/L Alkaline Phosphatase (46-116) U/L C-Reactive Protein (<1.0) mg/dL Total Protein (6.4-8.2) g/dl Albumin (3.4-5.0) g/dl Globulin gm/dL Albumin/Globulin Ratio (1-2) Lipase (73-393) U/L Urine Color (Yellow) Urine Appearance (Clear) Urine pH (5.0-8.0) Ur Specific [place] (1.005-1.030) Urine Protein (Negative) Urine Glucose (UA) (Negative) Urine Ketones (Negative) Urine Occult Blood (Negative) Urine Nitrite (Negative) Urine Bilirubin (Negative) Urine Urobilinogen (0.2-1.0) Ur Leukocyte Esterase (Negative) Urine RBC (0-5) /hpf Urine WBC (0-5) /hpf Ur Epithelial Cells (0-5) /hpf Urine Bacteria (FEW) /hpf Urine Mucus (FEW) /hpf SARS-CoV-2 RNA (MARIUSZ) (NEGATIVE) 12/10/20 Range/Units 05:23 WBC (4.23-9.07) K/mm3 RBC (4.63-6.08) M/mm3 Hgb (13.7-17.5) gm/dl Hct (40.1-51.0) % MCV (79.0-92.2) fl MCH (25.7-32.2) pg MCHC (32.2-35.5) g/dl RDW Std Deviation (35.1-43.9) fL Plt Count (163-337) K/mm3 MPV (9.4-12.3) fl Neut % (Auto) (34.0-67.9) % Lymph % (Auto) (21.8-53.1) % [place] % (Auto) (5.3-12.2) % Eos % (Auto) (0.8-7.0) Baso % (Auto) (0.1-1.2) % Neut # (Auto) (1.78-5.38) K/mm3 Lymph # (Auto) (1.32-3.57) K/mm3 [place] # (Auto) (0.30-0.82) K/mm3 Eos # (Auto) (0.04-0.54) K/mm3 Baso # (Auto) (0.01-0.08) K/mm3 Manual Slide Review Sodium 143 (136-145) mEq/L Potassium 3.5 (3.5-5.1) mEq/L Chloride 106 (98-107) mEq/L Carbon Dioxide 26 (21-32) mEq/L Anion Gap 14.5 (5-15) BUN 28 H (7-18) mg/dL Creatinine 1.3 (0.7-1.3) mg/dL Est Cr Clr Drug Dosing 59.92 mL/min Estimated GFR (MDRD) 57 (>60) mL/min BUN/Creatinine Ratio 21.5 H (14-18) Glucose 96 (74-106) mg/dL Lactic Acid (0.4-2.0) mmol/L Calcium 9.2 (8.5-10.1) mg/dL Phosphorus 2.7 (2.6-4.7) mg/dL Magnesium 2.2 (1.8-2.4) mg/dl Total Bilirubin 0.9 (0.2-1.0) mg/dL GGT (15-85) U/L AST 279 H (15-37) U/L ALT 426 H (16-63) U/L Alkaline Phosphatase 56 (46-116) U/L C-Reactive Protein (<1.0) mg/dL Total Protein 7.7 (6.4-8.2) g/dl Albumin 3.3 L (3.4-5.0) g/dl Globulin 4.4 gm/dL Albumin/Globulin Ratio 0.8 L (1-2) Lipase (73-393) U/L Urine Color (Yellow) Urine Appearance (Clear) Urine pH (5.0-8.0) Ur Specific [place] (1.005-1.030) Urine Protein (Negative) Urine Glucose (UA) (Negative) Urine Ketones (Negative) Urine Occult Blood (Negative) Urine Nitrite (Negative) Urine Bilirubin (Negative) Urine Urobilinogen (0.2-1.0) Ur Leukocyte Esterase (Negative) Urine RBC (0-5) /hpf Urine WBC (0-5) /hpf Ur Epithelial Cells (0-5) /hpf Urine Bacteria (FEW) /hpf Urine Mucus (FEW) /hpf SARS-CoV-2 RNA (MARIUSZ) (NEGATIVE) Mauricio Results Last 24 Hours: Microbiology 12/09/20 13:00 Anaerobic Blood Culture - Preliminary Blood - Venous Med Orders - Current: Current Medications Acetaminophen (Acetaminophen 325 Mg Tab) 650 mg PO Q4H PRN PRN Reason: Pain (Mild 1-3)/fever Enoxaparin Sodium (Enoxaparin 40 Mg/0.4 Ml Syringe) 40 mg SUBCUT DAILY [facility] Hydralazine HCl (Hydralazine 20 Mg/Ml Sdv) 10 mg IVPUSH Q6H PRN PRN Reason: Hypertension Lactated Ringer's (Ringers, Lactated) 1,000 mls @ 150 mls/hr IV ASDIRECTED [facility] Last Admin: 12/10/20 05:06 Dose: 150 mls/hr Documented by: Ondansetron HCl (Ondansetron 4 Mg Tab.Dis) 4 mg PO Q4H PRN PRN Reason: nausea, able to take PO Oxycodone HCl (Oxycodone 5 Mg Tab) 5 mg PO Q4H PRN PRN Reason: Pain (moderate 4-6) Sodium Chloride (Sodium Chloride 0.9% 10 Ml Syringe) 10 ml FLUSH ASDIRECTED PRN PRN Reason: Keep Vein Open Last Admin: 12/09/20 10:11 Dose: 10 ml Documented by: Discontinued Medications Diatrizoate Meglum/Diatrizoate Sod (Diatrizoate Meglumine/Diatrizoate Sodium 37% 120 Ml Bottle) 120 ml PO ONETIME ONE Stop: 12/10/20 08:31 Famotidine (Famotidine 20 Mg/2 Ml Sdv) 20 mg IVPUSH ONETIME ONE Stop: 12/09/20 10:11 Last Admin: 12/09/20 10:15 Dose: 20 mg Documented by: Sodium Chloride (Normal Saline) 1,000 mls @ 999 mls/hr IV NOW STA Stop: 12/09/20 10:51 Last Admin: 12/09/20 10:04 Dose: 999 mls/hr Documented by: Sodium Chloride (Normal Saline) 1,000 mls @ 999 mls/hr IV ONETIME ONE Stop: 12/09/20 12:37 Last Admin: 12/09/20 12:11 Dose: 999 mls/hr Documented by: Lactated Ringer's (Ringers, Lactated) 1,000 mls @ 999 mls/hr IV ONETIME ONE Stop: 12/09/20 18:30 Last Admin: 12/09/20 17:32 Dose: 999 mls/hr Documented by: Iopamidol (Iopamidol 612 Mg/Ml 100 Ml Bottle) 100 ml IVPUSH ONETIME ONE Stop: 12/09/20 11:28 Last Admin: 12/09/20 11:57 Dose: 100 ml Documented by: Iopamidol (Iopamidol 612 Mg/Ml 50 Ml Sdv) 25 ml IVPUSH ONETIME ONE Stop: 12/09/20 11:28 Last Admin: 12/09/20 11:57 Dose: 25 ml Documented by: Ondansetron HCl (Ondansetron 4 Mg/2 Ml Sdv) 4 mg IVPUSH ONETIME ONE Stop: 12/09/20 09:52 Last Admin: 12/09/20 10:04 Dose: 4 mg Documented by: Sodium Chloride (Sodium Chloride 0.9% 10 Ml Syringe) 10 ml FLUSH ONETIME PRN PRN Reason: Keep Vein Open Last Admin: 12/09/20 11:57 Dose: 10 ml Documented by: - Exam General: Alert, Oriented, Cooperative Lungs: Normal Respiratory Effort Cardiovascular: Regular Rate, Regular Rhythm, No Murmurs GI/Abdominal Exam: Soft, Non-Tender, No Organomegaly, No Distention - Patient Data Lab Results Last 24 hrs: Laboratory Results - last 24 hr 12/09/20 12/09/20 12/09/20 Range/Units 09:57 09:57 09:57 WBC 5.42 (4.23-9.07) K/mm3 RBC 5.99 (4.63-6.08) M/mm3 Hgb 17.8 H D (13.7-17.5) gm/dl Hct 52.4 H (40.1-51.0) % MCV 87.5 (79.0-92.2) fl MCH 29.7 (25.7-32.2) pg MCHC 34.0 (32.2-35.5) g/dl RDW Std Deviation 44.7 H (35.1-43.9) fL Plt Count 237 (163-337) K/mm3 MPV 8.4 L (9.4-12.3) fl Neut % (Auto) 79.5 H (34.0-67.9) % Lymph % (Auto) 7.6 L (21.8-53.1) % [place] % (Auto) 12.7 H (5.3-12.2) % Eos % (Auto) 0 L (0.8-7.0) Baso % (Auto) 0.0 L (0.1-1.2) % Neut # (Auto) 4.31 (1.78-5.38) K/mm3 Lymph # (Auto) 0.41 L (1.32-3.57) K/mm3 [place] # (Auto) 0.69 (0.30-0.82) K/mm3 Eos # (Auto) 0.00 L (0.04-0.54) K/mm3 Baso # (Auto) 0.00 L (0.01-0.08) K/mm3 Manual Slide Review Abnormal smear Sodium 137 (136-145) mEq/L Potassium 3.4 L (3.5-5.1) mEq/L Chloride 100 (98-107) mEq/L Carbon Dioxide 21 (21-32) mEq/L Anion Gap 19.4 H (5-15) BUN 33 H (7-18) mg/dL Creatinine 1.7 H (0.7-1.3) mg/dL Est Cr Clr Drug Dosing 45.82 mL/min Estimated GFR (MDRD) 42 (>60) mL/min BUN/Creatinine Ratio 19.4 H (14-18) Glucose 161 H (74-106) mg/dL Lactic Acid (0.4-2.0) mmol/L Calcium 9.4 (8.5-10.1) mg/dL Phosphorus (2.6-4.7) mg/dL Magnesium 1.9 (1.8-2.4) mg/dl Total Bilirubin 1.3 H (0.2-1.0) mg/dL GGT (15-85) U/L AST 341 H (15-37) U/L ALT 334 H (16-63) U/L Alkaline Phosphatase 76 (46-116) U/L C-Reactive Protein 20.0 H* (<1.0) mg/dL Total Protein 9.3 H (6.4-8.2) g/dl Albumin 4.2 (3.4-5.0) g/dl Globulin 5.1 gm/dL Albumin/Globulin Ratio 0.8 L (1-2) Lipase 56 L (73-393) U/L Urine Color (Yellow) Urine Appearance (Clear) Urine pH (5.0-8.0) Ur Specific [place] (1.005-1.030) Urine Protein (Negative) Urine Glucose (UA) (Negative) Urine Ketones (Negative) Urine Occult Blood (Negative) Urine Nitrite (Negative) Urine Bilirubin (Negative) Urine Urobilinogen (0.2-1.0) Ur Leukocyte Esterase (Negative) Urine RBC (0-5) /hpf Urine WBC (0-5) /hpf Ur Epithelial Cells (0-5) /hpf Urine Bacteria (FEW) /hpf Urine Mucus (FEW) /hpf SARS-CoV-2 RNA (MARIUSZ) (NEGATIVE) 12/09/20 12/09/20 12/09/20 Range/Units 09:57 11:50 12:07 WBC (4.23-9.07) K/mm3 RBC (4.63-6.08) M/mm3 Hgb (13.7-17.5) gm/dl Hct (40.1-51.0) % MCV (79.0-92.2) fl MCH (25.7-32.2) pg MCHC (32.2-35.5) g/dl RDW Std Deviation (35.1-43.9) fL Plt Count (163-337) K/mm3 MPV (9.4-12.3) fl Neut % (Auto) (34.0-67.9) % Lymph % (Auto) (21.8-53.1) % [place] % (Auto) (5.3-12.2) % Eos % (Auto) (0.8-7.0) Baso % (Auto) (0.1-1.2) % Neut # (Auto) (1.78-5.38) K/mm3 Lymph # (Auto) (1.32-3.57) K/mm3 [place] # (Auto) (0.30-0.82) K/mm3 Eos # (Auto) (0.04-0.54) K/mm3 Baso # (Auto) (0.01-0.08) K/mm3 Manual Slide Review Sodium (136-145) mEq/L Potassium (3.5-5.1) mEq/L Chloride (98-107) mEq/L Carbon Dioxide (21-32) mEq/L Anion Gap (5-15) BUN (7-18) mg/dL Creatinine (0.7-1.3) mg/dL Est Cr Clr Drug Dosing mL/min Estimated GFR (MDRD) (>60) mL/min BUN/Creatinine Ratio (14-18) Glucose (74-106) mg/dL Lactic Acid (0.4-2.0) mmol/L Calcium (8.5-10.1) mg/dL Phosphorus (2.6-4.7) mg/dL Magnesium (1.8-2.4) mg/dl Total Bilirubin (0.2-1.0) mg/dL GGT 59 (15-85) U/L AST (15-37) U/L ALT (16-63) U/L Alkaline Phosphatase (46-116) U/L C-Reactive Protein (<1.0) mg/dL Total Protein (6.4-8.2) g/dl Albumin (3.4-5.0) g/dl Globulin gm/dL Albumin/Globulin Ratio (1-2) Lipase (73-393) U/L Urine Color Dark yellow (Yellow) Urine Appearance Clear (Clear) Urine pH 5.5 (5.0-8.0) Ur Specific [place] > or = 1.030 (1.005-1.030) Urine Protein 2+ H (Negative) Urine Glucose (UA) Negative (Negative) Urine Ketones Negative (Negative) Urine Occult Blood 1+ H (Negative) Urine Nitrite Negative (Negative) Urine Bilirubin Negative (Negative) Urine Urobilinogen 0.2 (0.2-1.0) Ur Leukocyte Esterase Negative (Negative) Urine RBC 0-5 (0-5) /hpf Urine WBC 0-5 (0-5) /hpf Ur Epithelial Cells 5-10 H (0-5) /hpf Urine Bacteria Few (FEW) /hpf Urine Mucus Few (FEW) /hpf SARS-CoV-2 RNA (MARIUSZ) Negative (NEGATIVE) 12/09/20 12/09/20 12/10/20 Range/Units 12:50 16:20 05:23 WBC 4.50 (4.23-9.07) K/mm3 RBC 5.27 (4.63-6.08) M/mm3 Hgb 15.7 D (13.7-17.5) gm/dl Hct 46.9 (40.1-51.0) % MCV 89.0 (79.0-92.2) fl MCH 29.8 (25.7-32.2) pg MCHC 33.5 (32.2-35.5) g/dl RDW Std Deviation 45.7 H (35.1-43.9) fL Plt Count 224 (163-337) K/mm3 MPV 8.8 L (9.4-12.3) fl Neut % (Auto) 56.5 (34.0-67.9) % Lymph % (Auto) 22.9 (21.8-53.1) % [place] % (Auto) 18.4 H (5.3-12.2) % Eos % (Auto) 1.8 (0.8-7.0) Baso % (Auto) 0.2 (0.1-1.2) % Neut # (Auto) 2.54 (1.78-5.38) K/mm3 Lymph # (Auto) 1.03 L (1.32-3.57) K/mm3 [place] # (Auto) 0.83 H (0.30-0.82) K/mm3 Eos # (Auto) 0.08 (0.04-0.54) K/mm3 Baso # (Auto) 0.01 (0.01-0.08) K/mm3 Manual Slide Review Abnormal smear Sodium (136-145) mEq/L Potassium (3.5-5.1) mEq/L Chloride (98-107) mEq/L Carbon Dioxide (21-32) mEq/L Anion Gap (5-15) BUN (7-18) mg/dL Creatinine (0.7-1.3) mg/dL Est Cr Clr Drug Dosing mL/min Estimated GFR (MDRD) (>60) mL/min BUN/Creatinine Ratio (14-18) Glucose (74-106) mg/dL Lactic Acid 2.1 H* 2.2 H* (0.4-2.0) mmol/L Calcium (8.5-10.1) mg/dL Phosphorus (2.6-4.7) mg/dL Magnesium (1.8-2.4) mg/dl Total Bilirubin (0.2-1.0) mg/dL GGT (15-85) U/L AST (15-37) U/L ALT (16-63) U/L Alkaline Phosphatase (46-116) U/L C-Reactive Protein (<1.0) mg/dL Total Protein (6.4-8.2) g/dl Albumin (3.4-5.0) g/dl Globulin gm/dL Albumin/Globulin Ratio (1-2) Lipase (73-393) U/L Urine Color (Yellow) Urine Appearance (Clear) Urine pH (5.0-8.0) Ur Specific Wilber (1.005-1.030) Urine Protein (Negative) Urine Glucose (UA) (Negative) Urine Ketones (Negative) Urine Occult Blood (Negative) Urine Nitrite (Negative) Urine Bilirubin (Negative) Urine Urobilinogen (0.2-1.0) Ur Leukocyte Esterase (Negative) Urine RBC (0-5) /hpf Urine WBC (0-5) /hpf Ur Epithelial Cells (0-5) /hpf Urine Bacteria (FEW) /hpf Urine Mucus (FEW) /hpf SARS-CoV-2 RNA (MARIUSZ) (NEGATIVE) 12/10/20 Range/Units 05:23 WBC (4.23-9.07) K/mm3 RBC (4.63-6.08) M/mm3 Hgb (13.7-17.5) gm/dl Hct (40.1-51.0) % MCV (79.0-92.2) fl MCH (25.7-32.2) pg MCHC (32.2-35.5) g/dl RDW Std Deviation (35.1-43.9) fL Plt Count (163-337) K/mm3 MPV (9.4-12.3) fl Neut % (Auto) (34.0-67.9) % Lymph % (Auto) (21.8-53.1) % [place] % (Auto) (5.3-12.2) % Eos % (Auto) (0.8-7.0) Baso % (Auto) (0.1-1.2) % Neut # (Auto) (1.78-5.38) K/mm3 Lymph # (Auto) (1.32-3.57) K/mm3 [place] # (Auto) (0.30-0.82) K/mm3 Eos # (Auto) (0.04-0.54) K/mm3 Baso # (Auto) (0.01-0.08) K/mm3 Manual Slide Review Sodium 143 (136-145) mEq/L Potassium 3.5 (3.5-5.1) mEq/L Chloride 106 (98-107) mEq/L Carbon Dioxide 26 (21-32) mEq/L Anion Gap 14.5 (5-15) BUN 28 H (7-18) mg/dL Creatinine 1.3 (0.7-1.3) mg/dL Est Cr Clr Drug Dosing 59.92 mL/min Estimated GFR (MDRD) 57 (>60) mL/min BUN/Creatinine Ratio 21.5 H (14-18) Glucose 96 (74-106) mg/dL Lactic Acid (0.4-2.0) mmol/L Calcium 9.2 (8.5-10.1) mg/dL Phosphorus 2.7 (2.6-4.7) mg/dL Magnesium 2.2 (1.8-2.4) mg/dl Total Bilirubin 0.9 (0.2-1.0) mg/dL GGT (15-85) U/L AST 279 H (15-37) U/L ALT 426 H (16-63) U/L Alkaline Phosphatase 56 (46-116) U/L C-Reactive Protein (<1.0) mg/dL Total Protein 7.7 (6.4-8.2) g/dl Albumin 3.3 L (3.4-5.0) g/dl Globulin 4.4 gm/dL Albumin/Globulin Ratio 0.8 L (1-2) Lipase (73-393) U/L Urine Color (Yellow) Urine Appearance (Clear) Urine pH (5.0-8.0) Ur Specific Wilber (1.005-1.030) Urine Protein (Negative) Urine Glucose (UA) (Negative) Urine Ketones (Negative) Urine Occult Blood (Negative) Urine Nitrite (Negative) Urine Bilirubin (Negative) Urine Urobilinogen (0.2-1.0) Ur Leukocyte Esterase (Negative) Urine RBC (0-5) /hpf Urine WBC (0-5) /hpf Ur Epithelial Cells (0-5) /hpf Urine Bacteria (FEW) /hpf Urine Mucus (FEW) /hpf SARS-CoV-2 RNA (MARIUSZ) (NEGATIVE) Result Diagrams: 12/10/20 05:23 12/10/20 05:23 Mauricio Results Last 24 hrs: Microbiology 12/09/20 13:00 Anaerobic Blood Culture - Preliminary Blood - Venous Sepsis Event Note - Evaluation Sepsis Screening Result: No Definite Risk - Focused Exam Vital Signs: Vital Signs Temp Pulse Resp BP Pulse Ox 12/10/20 03:46 98.1 F 77 18 138/89 94 L 12/09/20 20:51 96 96 12/09/20 20:45 98.1 F 18 147/94 H - Problem List Review Problem List Initiated/Reviewed/Updated: No - My Orders Last 24 Hours: My Active Orders 12/09/20 15:30 STOOL CULTURE/SHIGA TOXIN [MREF] Routine 12/09/20 15:45 Resuscitation Status Routine 12/09/20 Dinner Nothing per Oral Now Diet [DIET] 12/09/20 17:09 Up ad Bertha [RC] ASDIRECTED Acetaminophen [TylenoL] 650 mg PO Q4H PRN Ondansetron [Zofran ODT] 4 mg PO Q4H PRN oxyCODONE 5 mg PO Q4H PRN 12/09/20 17:10 Intake and Output [RC] 04,16 Oxygen Therapy [RC] PRN VTE/DVT Education [RC] DAILY Vital Signs [RC] Q4HR 12/09/20 17:12 Cardiac Monitoring [RC] CONTINUOUS Pulse Oximetry [RC] PRN 12/09/20 17:13 Notify Provider Vital Signs [RC] ASDIRECTED Antiembolic Hose [OM.PC] Per Unit Routine 12/09/20 17:14 Antiembolic Devices [RC] DAILY 12/09/20 17:17 hydrALAZINE [Apresoline] 10 mg IVPUSH Q6H PRN 12/09/20 18:30 Lactated Ringers [Ringers, Lactated] 1,000 ml IV ASDIRECTED 12/09/20 18:56 Admission Status [Patient Status] [ADT] Routine 12/10/20 09:00 Enoxaparin [Lovenox] 40 mg SUBCUT DAILY 12/10/20 12:00 Abdomen 1V Upright [CR] Timed 12/11/20 05:11 CBC WITH AUTO DIFF [HEME] AM COMPREHENSIVE METABOLIC PN,CMP [CHEM] AM MAGNESIUM [CHEM] AM PHOSPHORUS [CHEM] AM 12/12/20 05:11 CBC WITH AUTO DIFF [HEME] AM COMPREHENSIVE METABOLIC PN,CMP [CHEM] AM MAGNESIUM [CHEM] AM PHOSPHORUS [CHEM] AM 12/13/20 05:11 CBC WITH AUTO DIFF [HEME] AM COMPREHENSIVE METABOLIC PN,CMP [CHEM] AM MAGNESIUM [CHEM] AM PHOSPHORUS [CHEM] AM 12/14/20 05:11 CBC WITH AUTO DIFF [HEME] AM COMPREHENSIVE METABOLIC PN,CMP [CHEM] AM MAGNESIUM [CHEM] AM PHOSPHORUS [CHEM] AM - Assessment Assessment:: HD1 SBO. - Plan Plan:: - Contrast study today. Gastrografin per NGT. Then clamp NGT x 3 hrs or when patient starts to have nausea/vomiting. Xray at 3 hrs post contrast administration and at 8hrs. - IVF at 125 cc/hr to continue resuscitation - continue ambulation - NGT to stay in today Will wait for the contrast study today.
[2020-12-10] MEDS: Enoxaparin 40 MG/0.4 ML Syringe SUBCUT SCH (09:30)
[2020-12-10] MEDS ORDERED: Lactated Ringers 1,000 ML IV SCH ×2 (10:00→19:00)
--- NOTE | 2020-12-10 18:14 | CR ---
Abdomen: Upright view of the abdomen was obtained. Comparison: Prior abdominal x-ray performed earlier on the same day (1:03 PM MDT) Findings: Contrast is again seen within portions of the colon. Dilated small bowel loops are seen. Nasogastric tube is noted. Bony structures appear within normal limits for the patient's age. Phleboliths are seen within the pelvis. Impression: 1. Contrast within the colon. 2. Small bowel loops are seen compatible with continuing partial small bowel obstruction. 3. Nasogastric tube remains within the stomach. Diagnostic code #3
[2020-12-10] MEDS: Potassium Chloride 10 MEQ in Premix Bag 1 BAG IV SCH ×2 (18:45→19:53)
--- NOTE | 2020-12-10 18:55 | PCM.SN.2 ---
- Free Text/Narrative Note: Xrays show contrast past the area of obstruction and the patient has been passing flatus and having some stools. NGT was clamped since 9 cm without any nausea or vomiting. Will remove the NGT and try CLD tonight. We will see how the patient does. I discussed with him that if he fails PO challenge he will need surgery. Patient understands.
--- NOTE | 2020-12-10 19:14 | CR ---
Abdomen: Upright view of the abdomen was obtained. Study was obtained 3.5 hours after contrast administration. Comparison: Previous abdominal x-ray of 12/09/20. Contrast is seen within the colon. Mildly dilated small bowel loops are seen which contain contrast. Nasogastric tube is seen. No free air is identified. Bony structures show nothing acute. Impression: 1. Mildly dilated small bowel loops. Contrast is noted within the colon ruling out complete small bowel obstruction. 2. Satisfactory position of nasogastric tube. Diagnostic code #2 MTDD
--- NOTE | 2020-12-11 07:56 | PCM.PN ---
- General Info Date of Service: 12/11/20 Admission Dx/Problem (Free Text): Admission Diagnosis/Problem Admission Diagnosis/Problem Small bowel obstruction Subjective Update: Patient tolerated clears overnight without any nausea or vomiting. He is feeling well this AM. He continues to pass flatus and have BMs. Functional Status: Reports: Tolerating Diet, Ambulating, Urinating - Review of Systems General: Reports: No Symptoms HEENT: Reports: No Symptoms Pulmonary: Reports: No Symptoms Cardiovascular: Reports: No Symptoms Gastrointestinal: Reports: No Symptoms Genitourinary: Reports: No Symptoms Musculoskeletal: Reports: No Symptoms Skin: Reports: No Symptoms Neurological: Reports: No Symptoms - Patient Data Vitals - Most Recent: Last Vital Signs Temp 97.7 F 12/11/20 04:25 Pulse 69 12/11/20 04:25 Resp 12 12/11/20 04:25 BP 124/80 12/11/20 04:25 Pulse Ox 93 L 12/11/20 04:25 Weight - Most Recent: 103.056 kg I&O - Last 24 Hours: Intake & Output 12/10/20 12/11/20 12/11/20 22:59 06:59 14:59 Intake Total 2135 1372 Output Total 800 650 Balance 1335 722 Lab Results Last 24 Hours: Laboratory Results - last 24 hr 12/11/20 12/11/20 Range/Units 05:09 05:09 WBC 4.07 L (4.23-9.07) K/mm3 RBC 4.96 (4.63-6.08) M/mm3 Hgb 14.8 (13.7-17.5) gm/dl Hct 44.3 (40.1-51.0) % MCV 89.3 (79.0-92.2) fl MCH 29.8 (25.7-32.2) pg MCHC 33.4 (32.2-35.5) g/dl RDW Std Deviation 44.6 H (35.1-43.9) fL Plt Count 235 (163-337) K/mm3 MPV 8.9 L (9.4-12.3) fl Neut % (Auto) 42.9 (34.0-67.9) % Lymph % (Auto) 32.4 (21.8-53.1) % [place] % (Auto) 19.4 H (5.3-12.2) % Eos % (Auto) 4.9 (0.8-7.0) Baso % (Auto) 0.2 (0.1-1.2) % Neut # (Auto) 1.74 L (1.78-5.38) K/mm3 Lymph # (Auto) 1.32 (1.32-3.57) K/mm3 [place] # (Auto) 0.79 (0.30-0.82) K/mm3 Eos # (Auto) 0.20 (0.04-0.54) K/mm3 Baso # (Auto) 0.01 (0.01-0.08) K/mm3 Manual Slide Review Abnormal smear Sodium 143 (136-145) mEq/L Potassium 3.8 (3.5-5.1) mEq/L Chloride 108 H (98-107) mEq/L Carbon Dioxide 26 (21-32) mEq/L Anion Gap 12.8 (5-15) BUN 28 H (7-18) mg/dL Creatinine 1.1 (0.7-1.3) mg/dL Est Cr Clr Drug Dosing 70.82 mL/min Estimated GFR (MDRD) > 60 (>60) mL/min BUN/Creatinine Ratio 25.5 H (14-18) Glucose 83 (74-106) mg/dL Calcium 8.6 (8.5-10.1) mg/dL Phosphorus 2.1 L (2.6-4.7) mg/dL Magnesium 2.1 (1.8-2.4) mg/dl Total Bilirubin 0.7 (0.2-1.0) mg/dL AST 124 H (15-37) U/L ALT 272 H (16-63) U/L Alkaline Phosphatase 48 (46-116) U/L Total Protein 7.3 (6.4-8.2) g/dl Albumin 3.1 L (3.4-5.0) g/dl Globulin 4.2 gm/dL Albumin/Globulin Ratio 0.7 L (1-2) Mauricio Results Last 24 Hours: Microbiology 12/09/20 15:30 Shiga Toxin I & II - Final Stool / Feces 12/09/20 13:00 Aerobic Blood Culture - Preliminary Blood - Venous NO GROWTH AFTER 1 DAY Anaerobic Blood Culture - Preliminary NO GROWTH AFTER 1 DAY 12/09/20 12:50 Aerobic Blood Culture - Preliminary Blood - Venous - Lab Draw NO GROWTH AFTER 1 DAY Anaerobic Blood Culture - Preliminary NO GROWTH AFTER 1 DAY Med Orders - Current: Current Medications Acetaminophen (Acetaminophen 325 Mg Tab) 650 mg PO Q4H PRN PRN Reason: Pain (Mild 1-3)/fever Amlodipine Besylate (Amlodipine 5 Mg Tab) 5 mg PO DAILY COUNTS INCLUDE 234 BEDS AT THE [facility] Enoxaparin Sodium (Enoxaparin 40 Mg/0.4 Ml Syringe) 40 mg SUBCUT DAILY COUNTS INCLUDE 234 BEDS AT THE [facility] Last Admin: 12/10/20 09:30 Dose: 40 mg Documented by: Hydralazine HCl (Hydralazine 20 Mg/Ml Sdv) 10 mg IVPUSH Q6H PRN PRN Reason: Hypertension Lactated Ringer's (Ringers, Lactated) 1,000 mls @ 75 mls/hr IV ASDIRECTED COUNTS INCLUDE 234 BEDS AT THE [facility] Last Admin: 12/11/20 04:26 Dose: 75 mls/hr Documented by: Ondansetron HCl (Ondansetron 4 Mg Tab.Dis) 4 mg PO Q4H PRN PRN Reason: nausea, able to take PO Oxycodone HCl (Oxycodone 5 Mg Tab) 5 mg PO Q4H PRN PRN Reason: Pain (moderate 4-6) Sodium Chloride (Sodium Chloride 0.9% 10 Ml Syringe) 10 ml FLUSH ASDIRECTED PRN PRN Reason: Keep Vein Open Last Admin: 12/09/20 10:11 Dose: 10 ml Documented by: Discontinued Medications Diatrizoate Meglum/Diatrizoate Sod (Diatrizoate Meglumine/Diatrizoate Sodium 37% 120 Ml Bottle) 120 ml PO ONETIME ONE Stop: 12/10/20 08:31 Last Admin: 12/10/20 09:21 Dose: 120 ml Documented by: Famotidine (Famotidine 20 Mg/2 Ml Sdv) 20 mg IVPUSH ONETIME ONE Stop: 12/09/20 10:11 Last Admin: 12/09/20 10:15 Dose: 20 mg Documented by: Sodium Chloride (Normal Saline) 1,000 mls @ 999 mls/hr IV NOW STA Stop: 12/09/20 10:51 Last Admin: 12/09/20 10:04 Dose: 999 mls/hr Documented by: Sodium Chloride (Normal Saline) 1,000 mls @ 999 mls/hr IV ONETIME ONE Stop: 12/09/20 12:37 Last Admin: 12/09/20 12:11 Dose: 999 mls/hr Documented by: Lactated Ringer's (Ringers, Lactated) 1,000 mls @ 999 mls/hr IV ONETIME ONE Stop: 12/09/20 18:30 Last Admin: 12/09/20 17:32 Dose: 999 mls/hr Documented by: Lactated Ringer's (Ringers, Lactated) 1,000 mls @ 150 mls/hr IV ASDIRECTED COUNTS INCLUDE 234 BEDS AT THE [facility] Stop: 12/10/20 13:00 Last Admin: 12/10/20 05:06 Dose: 150 mls/hr Documented by: Lactated Ringer's (Ringers, Lactated) 1,000 mls @ 125 mls/hr IV ASDIRECTED COUNTS INCLUDE 234 BEDS AT THE [facility] Last Admin: 12/10/20 14:17 Dose: 125 mls/hr Documented by: Potassium Chloride 10 meq/ (Premix) 100 mls @ 100 mls/hr IV Q1H COUNTS INCLUDE 234 BEDS AT THE [facility] Stop: 12/10/20 20:29 Last Admin: 12/10/20 19:53 Dose: 100 mls/hr Documented by: Iopamidol (Iopamidol 612 Mg/Ml 100 Ml Bottle) 100 ml IVPUSH ONETIME ONE Stop: 12/09/20 11:28 Last Admin: 12/09/20 11:57 Dose: 100 ml Documented by: Iopamidol (Iopamidol 612 Mg/Ml 50 Ml Sdv) 25 ml IVPUSH ONETIME ONE Stop: 12/09/20 11:28 Last Admin: 12/09/20 11:57 Dose: 25 ml Documented by: Ondansetron HCl (Ondansetron 4 Mg/2 Ml Sdv) 4 mg IVPUSH ONETIME ONE Stop: 12/09/20 09:52 Last Admin: 12/09/20 10:04 Dose: 4 mg Documented by: Sodium Chloride (Sodium Chloride 0.9% 10 Ml Syringe) 10 ml FLUSH ONETIME PRN PRN Reason: Keep Vein Open Last Admin: 12/09/20 11:57 Dose: 10 ml Documented by: - Exam General: Alert, Oriented, Cooperative Lungs: Normal Respiratory Effort Cardiovascular: Regular Rate, Regular Rhythm GI/Abdominal Exam: Soft, Non-Tender, No Organomegaly, No Distention, No Abnormal Bruit - Patient Data Lab Results Last 24 hrs: Laboratory Results - last 24 hr 12/11/20 12/11/20 Range/Units 05:09 05:09 WBC 4.07 L (4.23-9.07) K/mm3 RBC 4.96 (4.63-6.08) M/mm3 Hgb 14.8 (13.7-17.5) gm/dl Hct 44.3 (40.1-51.0) % MCV 89.3 (79.0-92.2) fl MCH 29.8 (25.7-32.2) pg MCHC 33.4 (32.2-35.5) g/dl RDW Std Deviation 44.6 H (35.1-43.9) fL Plt Count 235 (163-337) K/mm3 MPV 8.9 L (9.4-12.3) fl Neut % (Auto) 42.9 (34.0-67.9) % Lymph % (Auto) 32.4 (21.8-53.1) % [place] % (Auto) 19.4 H (5.3-12.2) % Eos % (Auto) 4.9 (0.8-7.0) Baso % (Auto) 0.2 (0.1-1.2) % Neut # (Auto) 1.74 L (1.78-5.38) K/mm3 Lymph # (Auto) 1.32 (1.32-3.57) K/mm3 [place] # (Auto) 0.79 (0.30-0.82) K/mm3 Eos # (Auto) 0.20 (0.04-0.54) K/mm3 Baso # (Auto) 0.01 (0.01-0.08) K/mm3 Manual Slide Review Abnormal smear Sodium 143 (136-145) mEq/L Potassium 3.8 (3.5-5.1) mEq/L Chloride 108 H (98-107) mEq/L Carbon Dioxide 26 (21-32) mEq/L Anion Gap 12.8 (5-15) BUN 28 H (7-18) mg/dL Creatinine 1.1 (0.7-1.3) mg/dL Est Cr Clr Drug Dosing 70.82 mL/min Estimated GFR (MDRD) > 60 (>60) mL/min BUN/Creatinine Ratio 25.5 H (14-18) Glucose 83 (74-106) mg/dL Calcium 8.6 (8.5-10.1) mg/dL Phosphorus 2.1 L (2.6-4.7) mg/dL Magnesium 2.1 (1.8-2.4) mg/dl Total Bilirubin 0.7 (0.2-1.0) mg/dL AST 124 H (15-37) U/L ALT 272 H (16-63) U/L Alkaline Phosphatase 48 (46-116) U/L Total Protein 7.3 (6.4-8.2) g/dl Albumin 3.1 L (3.4-5.0) g/dl Globulin 4.2 gm/dL Albumin/Globulin Ratio 0.7 L (1-2) Result Diagrams: 12/11/20 05:09 12/11/20 05:09 Mauricio Results Last 24 hrs: Microbiology 12/09/20 15:30 Shiga Toxin I & II - Final Stool / Feces 12/09/20 13:00 Aerobic Blood Culture - Preliminary Blood - Venous NO GROWTH AFTER 1 DAY Anaerobic Blood Culture - Preliminary NO GROWTH AFTER 1 DAY 12/09/20 12:50 Aerobic Blood Culture - Preliminary Blood - Venous - Lab Draw NO GROWTH AFTER 1 DAY Anaerobic Blood Culture - Preliminary NO GROWTH AFTER 1 DAY Sepsis Event Note - Evaluation Sepsis Screening Result: No Definite Risk - Focused Exam Vital Signs: Vital Signs Temp Pulse Resp BP Pulse Ox 12/11/20 04:25 97.7 F 69 12 124/80 93 L 12/10/20 21:08 97.9 F 70 14 122/93 H 94 L - Problem List Review Problem List Initiated/Reviewed/Updated: No - My Orders Last 24 Hours: My Active Orders 12/10/20 09:00 Enoxaparin [Lovenox] 40 mg SUBCUT DAILY 12/10/20 Dinner Clear Liquid Diet [DIET] 12/10/20 19:00 Lactated Ringers [Ringers, Lactated] 1,000 ml IV ASDIRECTED 12/11/20 09:00 amLODIPine [Norvasc] 5 mg PO DAILY 12/12/20 05:11 CBC WITH AUTO DIFF [HEME] AM COMPREHENSIVE METABOLIC PN,CMP [CHEM] AM MAGNESIUM [CHEM] AM PHOSPHORUS [CHEM] AM 12/13/20 05:11 CBC WITH AUTO DIFF [HEME] AM COMPREHENSIVE METABOLIC PN,CMP [CHEM] AM MAGNESIUM [CHEM] AM PHOSPHORUS [CHEM] AM 12/14/20 05:11 CBC WITH AUTO DIFF [HEME] AM COMPREHENSIVE METABOLIC PN,CMP [CHEM] AM MAGNESIUM [CHEM] AM PHOSPHORUS [CHEM] AM - Assessment Assessment:: HD2 SBO. Passed contrast into the colon which indicated at most a partial or resolving SBO. Tolerated CLD overnight. - Plan Plan:: - CLD for Breakfast, if tolerates (no nausea or vomiting), then advance to FLD for lunch, if tolerates that, advance to regular diet for dinner. - dc IVF - ambulate - If develops nausea or vomiting at any time, stop diet and make NPO. If he tolerates diet today, will likely discharge him to home tomorrow.
[2020-12-11] MEDS: amLODIPine 5 MG Tab PO SCH (08:35)
[2020-12-11] MEDS: Enoxaparin 40 MG/0.4 ML Syringe SUBCUT SCH (08:36)
[2020-12-12 08:04] VITALS: BP 133/84
[2020-12-12] MEDS: Enoxaparin 40 MG/0.4 ML Syringe SUBCUT SCH (08:04)
[2020-12-12] MEDS: amLODIPine 5 MG Tab PO SCH (08:04)
[2020-12-12 08:27] VITALS: PULSE 63
[2020-12-12] MEDS ORDERED: Potassium Bicarbonate/Cit Ac 20 MEQ Effervescent Tab PO ONE (08:30)
--- NOTE | 2020-12-17 08:31 | PCM.DCSUM1 ---
Discharge Summary - Hospital Course Free Text/Narrative:: Patient was admitted for SBO. He was managed non-operatively with bowel rest and NGT tube. He eventually opened up and slowly advanced diet to regular. Patient tolerated the diet well. Abdominal pain completely resolved and was able to ambulate on room air. Patient will be discharged to home for self care. He will follow up with his PCP. He is due for colonoscopy but does not want this test. He will return to the hospital should the symptoms recur. Diagnosis: Stroke: No - Discharge Data Discharge Date: 12/12/20 Discharge Disposition: Home, Self-Care 01 Condition: Good - Referral to Home Health Primary Care Physician: Igor Chavez MD - Patient Instructions Diet: Heart Healthy Diet Activity: As Tolerated Driving: May Drive Today Showering/Bathing: January Shower Notify Provider of: Fever, Nausea and/or Vomiting - Discharge Plan *PRESCRIPTION DRUG MONITORING PROGRAM REVIEWED*: Not Applicable *COPY OF PRESCRIPTION DRUG MONITORING REPORT IN PATIENT JANET: Not Applicable Home Medications: Home Meds amLODIPine [Norvasc] 5 mg PO DAILY 12/09/20 [History] Oxygen Therapy Mode: Room Air Patient Handouts: Bowel Obstruction, [id number] Forms: ED Department Discharge Referrals: Igor Chavez MD [Primary Care Provider] - 12/22/20 9:30 am Jose Evangelista MD [Physician] - (please follow up with Dr. Evangelista only as needed) - Discharge Summary/Plan Comment DC Time >30 min.: No - General Info Date of Service: 12/12/20 Admission Dx/Problem (Free Text: Admission Diagnosis/Problem Admission Diagnosis/Problem Small bowel obstruction Subjective Update: Patient is doing well. He is devoid of any abd pain or nausea or vomiting overnight. Continues to tolerate regular diet ahd have bowel functions. Functional Status: Reports: Tolerating Diet, Ambulating, Urinating - Review of Systems General: Reports: No Symptoms HEENT: Reports: No Symptoms Pulmonary: Reports: No Symptoms Cardiovascular: Reports: No Symptoms Gastrointestinal: Reports: No Symptoms Genitourinary: Reports: No Symptoms Musculoskeletal: Reports: No Symptoms Skin: Reports: No Symptoms Neurological: Reports: No Symptoms - Patient Data Vitals - Most Recent: Last Vital Signs Temp 97.9 F 12/12/20 07:52 Pulse 63 12/12/20 07:52 Resp 18 12/12/20 07:52 BP 133/84 12/12/20 08:04 Pulse Ox 98 12/12/20 07:52 Weight - Most Recent: 102.829 kg CHOCO Results - Last 24 hrs: Microbiology 12/09/20 13:00 Aerobic Blood Culture - Final Blood - Venous NO GROWTH AFTER 7 DAYS Anaerobic Blood Culture - Final NO GROWTH AFTER 7 DAYS 12/09/20 12:50 Aerobic Blood Culture - Final Blood - Venous - Lab Draw NO GROWTH AFTER 7 DAYS Anaerobic Blood Culture - Final NO GROWTH AFTER 7 DAYS Med Orders - Current: Current Medications Discontinued Medications Acetaminophen (Acetaminophen 325 Mg Tab) 650 mg PO Q4H PRN PRN Reason: Pain (Mild 1-3)/fever Amlodipine Besylate (Amlodipine 5 Mg Tab) 5 mg PO DAILY [facility] Last Admin: 12/12/20 08:04 Dose: 5 mg Documented by: Diatrizoate Meglum/Diatrizoate Sod (Diatrizoate Meglumine/Diatrizoate Sodium 37% 120 Ml Bottle) 120 ml PO ONETIME ONE Stop: 12/10/20 08:31 Last Admin: 12/10/20 09:21 Dose: 120 ml Documented by: Enoxaparin Sodium (Enoxaparin 40 Mg/0.4 Ml Syringe) 40 mg SUBCUT DAILY [facility] Last Admin: 12/12/20 08:04 Dose: Not Given Documented by: Famotidine (Famotidine 20 Mg/2 Ml Sdv) 20 mg IVPUSH ONETIME ONE Stop: 12/09/20 10:11 Last Admin: 12/09/20 10:15 Dose: 20 mg Documented by: Hydralazine HCl (Hydralazine 20 Mg/Ml Sdv) 10 mg IVPUSH Q6H PRN PRN Reason: Hypertension Sodium Chloride (Normal Saline) 1,000 mls @ 999 mls/hr IV NOW STA Stop: 12/09/20 10:51 Last Admin: 12/09/20 10:04 Dose: 999 mls/hr Documented by: Sodium Chloride (Normal Saline) 1,000 mls @ 999 mls/hr IV ONETIME ONE Stop: 12/09/20 12:37 Last Admin: 12/09/20 12:11 Dose: 999 mls/hr Documented by: Lactated Ringer's (Ringers, Lactated) 1,000 mls @ 999 mls/hr IV ONETIME ONE Stop: 12/09/20 18:30 Last Admin: 12/09/20 17:32 Dose: 999 mls/hr Documented by: Lactated Ringer's (Ringers, Lactated) 1,000 mls @ 150 mls/hr IV ASDIRECTED [facility] Stop: 12/10/20 13:00 Last Admin: 12/10/20 05:06 Dose: 150 mls/hr Documented by: Lactated Ringer's (Ringers, Lactated) 1,000 mls @ 125 mls/hr IV ASDIRECTED [facility] Last Admin: 12/10/20 14:17 Dose: 125 mls/hr Documented by: Potassium Chloride 10 meq/ (Premix) 100 mls @ 100 mls/hr IV Q1H [facility] Stop: 12/10/20 20:29 Last Admin: 12/10/20 19:53 Dose: 100 mls/hr Documented by: Lactated Ringer's (Ringers, Lactated) 1,000 mls @ 75 mls/hr IV ASDIRECTED [facility] Last Admin: 12/11/20 04:26 Dose: 75 mls/hr Documented by: Iopamidol (Iopamidol 612 Mg/Ml 100 Ml Bottle) 100 ml IVPUSH ONETIME ONE Stop: 12/09/20 11:28 Last Admin: 12/09/20 11:57 Dose: 100 ml Documented by: Iopamidol (Iopamidol 612 Mg/Ml 50 Ml Sdv) 25 ml IVPUSH ONETIME ONE Stop: 12/09/20 11:28 Last Admin: 12/09/20 11:57 Dose: 25 ml Documented by: Ondansetron HCl (Ondansetron 4 Mg/2 Ml Sdv) 4 mg IVPUSH ONETIME ONE Stop: 12/09/20 09:52 Last Admin: 12/09/20 10:04 Dose: 4 mg Documented by: Ondansetron HCl (Ondansetron 4 Mg Tab.Dis) 4 mg PO Q4H PRN PRN Reason: nausea, able to take PO Oxycodone HCl (Oxycodone 5 Mg Tab) 5 mg PO Q4H PRN PRN Reason: Pain (moderate 4-6) Potassium Bicarbonate (Potassium Bicarbonate/Cit Ac 20 Meq Effervescent Tab) 20 meq PO ONETIME ONE Stop: 12/12/20 08:31 Last Admin: 12/12/20 08:58 Dose: 20 meq Documented by: Sodium Chloride (Sodium Chloride 0.9% 10 Ml Syringe) 10 ml FLUSH ASDIRECTED PRN PRN Reason: Keep Vein Open Last Admin: 12/09/20 10:11 Dose: 10 ml Documented by: Sodium Chloride (Sodium Chloride 0.9% 10 Ml Syringe) 10 ml FLUSH ONETIME PRN PRN Reason: Keep Vein Open Last Admin: 12/09/20 11:57 Dose: 10 ml Documented by: - Exam General: Reports: Alert, Oriented, Cooperative Lungs: Reports: Normal Respiratory Effort Cardiovascular: Reports: Regular Rate, Regular Rhythm GI/Abdominal Exam: Soft, Non-Tender, No Distention, No Mass
== END 2020-12-12 10:48 | disposition home or self-care (01) | DRG 390 ==
LOC: JD.ED 09:32 → JD.MS 13:14
PROVIDERS: ADMIT Surgery; ATTEND Surgery
PROC: 0D9670Z Drainage of Stomach with Drainage Device, Via Natural or Artificial Opening (ICD-10-PCS; principal; 2020-12-09)
DX: K56.600 Partial intestinal obstruction, unspecified as to cause (principal); H91.93 Unspecified hearing loss, bilateral; I10 Essential (primary) hypertension; M10.9 Gout, unspecified; E66.9 Obesity, unspecified; Z90.89 Acquired absence of other organs; Z98.890 Other specified postprocedural states; Z20.822 Contact with and (suspected) exposure to COVID-19; Z68.34 Body mass index [BMI] 34.0-34.9, adult
CPT/HCPCS: 36415; 43752; 71045; 71045-26; 74018; 74018-26; 74177; 74177-26; 80053; 81001; 82977; 83605; 83690; 83735; 84100; 85025; 86140; 87040; 87045; 87046; 87899; 96361; 96374; 96375; 99285; 99285-25; A9270-GY; J1650; J2405; J3480; J3490; J7030; J7120; Q9963; Q9967; U0002